=== PATIENT | male | born 1985 | race Caucasian/White ===

== ENCOUNTER 2024-07-28 08:44 | Emergency (ER) | payer OTHER, SELFPAY ==
--- NOTE | 2024-07-28 08:48 | ED_ITS ---
HPI - URI/Sore Throat General Chief Complaint: Upper Respiratory Infection Stated Complaint: cold symptoms Time Seen by Provider: 07/28/24 08:48 Source: patient Mode of arrival: ambulatory Limitations: no limitations History of Present Illness HPI Narrative: Jeacnarlos is a 39-year-old male patient presenting to the clinic today with complaints of sore throat x 10 days. He reports he had cold symptoms for approximately 2 days and those symptoms resolved however he has had sore throat this gradually get worse over the last 8 days. Denies any known fevers, chills, body aches. Does report a decrease in appetite. Related Data Allergies Allergy/AdvReac Type Severity Reaction Status Date / Time No Known Allergies Allergy Verified 07/28/24 08:55 Review of Systems Review of Systems: Pertinent positives per HPI. Patient denies any fever, chills, rash, headache, visual changes, dizziness, cough, shortness of breath, chest pain, palpitations, nausea, vomiting, diarrhea, constipation, abdominal pain, or any urinary issues. PMFSH Past Medical History Medical History Lateral epicondylitis of elbow Migraines Elevated BP without diagnosis of hypertension Hypersomnia Snoring Depression PTSD (post-traumatic stress disorder) Frequent headaches Anxiety Surgical History Surgical History History of vasectomy 2022 Family History Family History Father COPD (chronic obstructive pulmonary disease) Mother Diabetes mellitus Hypertension Grandparent Diabetes mellitus Hypertension Carcinoma of colon Social History Social History Smoking status: Never smoker Alcohol intake: current Alcohol use details: Beer- Once a week 3-6 drinks Substance use: never Comments At the time of my signature, I reviewed and agree with the nursing past medical, surgical, social, and family history. There is no relevant family history pertinent to the patient complaint. Exam Narrative: General: Well-developed, well nourished, in no apparent distress Head: Normocephalic, atraumatic Eyes: Pupils equally round and reactive to light bilaterally, EOM intact, sclera and conjunctive clear, no discharge, lids normal Ears: TMs intact and clear, ear canals clear, no drainage, grossly hearing normal. Nose: Nares patent, clear nasal discharge, no inflammation, no sinus tenderness. Mouth: Oral pharynx mildly red without lesions or masses, good dentition, MMM. Postnasal drip Neck: Supple, trachea midline, no enlargement of anterior or posterior cervical nodes, no thyroid masses or goiter palpable. Cardio: Regular rate and rhythm, s1 and s2 normal, no murmur appreciated. Resp: Clear to auscultation bilaterally, no rhonchi, rales, wheezing or rubs Course Course Emergency Course: Portions of this record may have been created with voice recognition software. Level of Care: Express Care Visit Vital Signs Vital signs: Vital Signs Temperature 36.4 C 07/28/24 08:55 Pulse Rate 91 07/28/24 08:55 Respiratory Rate 18 07/28/24 08:55 Blood Pressure 133/94 H 07/28/24 08:55 Pulse Oximetry 98 07/28/24 08:55 Oxygen Delivery Room Air 07/28/24 08:55 Temperature 36.4 C 07/28/24 08:55 Pulse Rate 91 07/28/24 08:55 Respiratory Rate 18 07/28/24 08:55 Blood Pressure 133/94 H 07/28/24 08:55 Pulse Oximetry 98 07/28/24 08:55 Oxygen Delivery Room Air 07/28/24 08:55 Vital signs reviewed MDM - URI/Sore Throat MDM Narrative Medical decision making narrative: At the time of visit patient is resting comfortably on the exam table. Patient appears to be nontoxic. Labs: Strep test was negative in the clinic today. We will send strep for culture. Plan: I suspect patient has pharyngitis/postnasal drip. Prescription for prednisone was sent to the pharmacy. Recommend using Flonase and [id number] antihistamines. Supportive measures were discussed with the patient and they voiced understanding discharge instructions and agrees to treatment plan. Return precautions reviewed Differential Diagnosis Differential diagnosis: Likely upper respiratory infection, otitis media, sinusitis, viral infection, bronchitis, influenza, pharyngitis and other (COVID) Lab Data Labs: Lab Results 07/28/24 Range/Units 09:09 POC Grp A Strep Screen Pending Discharge Plan Discharge Clinical Impression: PND (post-nasal drip) Pharyngitis Qualifiers: Pharyngitis/tonsillitis etiology: unspecified etiology Qualified Code(s): J02.9 - Acute pharyngitis, unspecified Patient Disposition: Home Condition: Stable Instructions: Antibiotic Form, Pharyngitis (ED), Postnasal Drip (DC) Additional Instructions: Strep test was negative in the clinic today. We will send strep for culture if this comes back positive we will contact you place you on antibiotics at that time. Take prescription medications only as prescribed-prednisone Increase fluids and stay well hydrated Tylenol/motrin for pain/fever Flonase and OTC antihistamines as directed Vicks vapor rub to open sinuses Sinus rinses for congestion Cepacol spray, cough drops, throat lozenges, warm tea with honey/lemon, gargle salt water to soothe throat BRAT diet for diarrhea Clear liquids x 24 hours then advance as tolerated for nausea/vomiting Go to the ED if you develop a worsening in your condition- high fever not controlled by Tylenol or Motrin, dehydration, weakness, lethargy, shortness of breath, or chest pain. Follow up with your PCP in 3-5 days if symptoms persist. Patient Language: Ethiopian Prescriptions: New prednisone 20 mg tablet 40 mg PO DAILY 5 Days Qty: 10 0RF Follow-up/Referrals: UNKNOWN,DOCTOR [Non-Staff] - Time of Disposition: 09:00 Quality NIHSS Nursing Documentation ED NIHSS nursing documentation: reviewed/agree
--- OUTSIDE RECORDS SUMMARY | 2024-07-28 08:51 | XMS_ITS | Continuity of Care Document ---
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 It does not include entries that were removed or entered in error. Problem Status Onset Date Problem Type Date of Resolution Comments Source visit for: services physical Active Condition DoD visit for: occupational health / fitness exam Active Condition DoD Migraine variants Active Condition 0232 C-[facility] Morbid obesity Active Condition Unknown Organization PTSD - Post-traumatic stress disorder Active Condition 0232C-[facility] [place] Allergies, Adverse Reactions, Alerts Combined list of allergies from Department of Defense and Veterans Affairs facilities. It does not include entries that were removed or entered in error. Substance Category Reaction Severity Reaction type Status Date Reported Comments Source No Known Allergies Drug allergy (disorder) active 12/06/2007 [facility] Immunizations Combined list of available immunizations from the Department of Defense and Veterans Affairs facilities. Immunization Series Date Given Administered By Site Reaction Lot Number CVX Code Drug Hotel Breakfast Attendant Status Comments Source influenza virus vaccine, inactivated 2021 JUVENCIO Moreiraul macario, right (delt oid) [id number] Ps[employer]ic, A [employer] Company complet ed influenza virus vaccine, inactivat ed 02/26/22 Given 0232C-N [facility] Medical [facility] [place] [facility] l tetanus, diphtheria, acellular pertu is 2021 LOUIAMS Shoul macario, left (delt oid) [id number] sanofi pasteur complet ed tetanus, diphtheri a, acellular pertussis 08/03/21 Given 0029C-N [facility] COVID Vaccine Pfizer 2021 MISBAHLLIAMS Shoul macario, right (delt oid) [id number] PFIZER complet ed COVID Vaccine Pfizer 08/03/21 Given 0029C-N [facility] influenza virus vaccine, inactivated 2020 CODYDDUPONT Shoul macario, left (delt oid) [id number] 150 Seqirus, A [employer] Company complet ed influenza virus vaccine, inactivat ed 02/23/21 [facility] influenza, injectable, quadrivalent 2020 RUTHLCLEMENTMS [id number] 158 complet ed Result Comment: Route: Unknown Manufactu rer: OT (SEQ) 0029CN [facility] COVID Vaccine Pfizer 2020 LAKESHIA GIBBS Shoul macario, right (delt oid) [id number] PFIZER complet ed COVID Vaccine Pfizer 11/13/20 Given 0029N [facility] COVID Vaccine Pfizer 2020 BROOKLYSHELLY E Shoul macario, left (delt oid) [id number] PFIZER complet ed COVID Vaccine Pfizer 10/21/20 Given 0029CN [facility] influenza, injectable, quadrivalent- pf 2019 DERREK Transcr ibed 150 complet ed Result Comment: Route: Unknown Manufactu rer: OT (TRN) 0029N [facility] influenza, injectable, quadrivalent- pf 2018 [id number] 150 Seqirus complet ed influenza , injectabl e, quadrival ent-pf 03/06/19 Given Ambulat ory Pharmac y influenza, injectable, quadrivalent- pf 2018 [id number] 150 Seqirus complet ed influenza , injectabl e, quadrival ent-pf 03/06/19 Given Ambulat ory Pharmac y Influenza, injectable, quadrivalent, preservative free 0 2018 [id number] 150 Seqirus (SEQ) complet ed Influenza , injectabl e, quadrival ent, preservat maylin free DoD Croatian Encephalitis IM 2018 [id number] 5E 134 Valneva complet ed Croatian Encephali tis IM 06/09/18 Given Ambulat ory Pharmac y typhoid vaccine, parenteral 2018 [id number] 41 sanofi pasteur complet ed typhoid vaccine, parentera l 06/09/18 Given Ambulat ory Pharmac y anthrax vaccine 2018 [id number] 24 Emer[employer] complet ed anthrax vaccine 06/09/18 Given Ambulat ory Pharmac y typhoid vaccine, parenteral 2018 [id number] 41 sanofi pasteur complet ed typhoid vaccine, parentera l 06/09/18 Given Ambulat ory Pharmac y anthrax vaccine 2018 [id number] 24 [employer] complet ed anthrax vaccine 06/09/18 Given Ambulat ory Pharmac y Croatian Encephalitis IM 2018 [id number] 5E 134 Valneva complet ed [place]ian Encephali tis IM 06/09/18 Given Ambulat ory Pharmac y anthrax vaccine 7 2018 [id number] 24 Emergent [employer] [place] (MIP) complet ed anthrax vaccine DoD typhoid vaccine, parenteral, other than acetone-kille d, dried 1 2018 [id number] 41 Sanofi Pasteur (PMC) complet ed typhoid vaccine, parentera l, other than acetone-k illed, dried DoD [place] Encephalitis vaccine for intramuscular administratio n 3 2018 [id number] 5E 134 Valneva (LINUS) complet ed [place] Encephali tis vaccine for intramusc ular administr ation DoD varicella virus vaccine 0 2017 21 () Not Given varicella virus vaccine DoD influenza, injectable, quadrivalent- pf 2017 [id number] 1A 150 Seqirus complet ed influenza , injectabl e, quadrival ent-pf 01/23/18 Given Ambulat ory Pharmac y influenza, injectable, quadrivalent- pf 2017 [id number] 1A 150 Seqirus complet ed influenza , injectabl e, quadrival ent-pf 01/23/18 Given Ambulat ory Pharmac y Influenza, injectable, quadrivalent, preservative free 0 2017 [id number] 1A 150 Seqirus (SEQ) complet ed Influenza , injectabl e, quadrival ent, preservat maylin free DoD Croatian Encephalitis IM 2016 [id number] 5e 134 Valneva complet ed Croatian Encephali tis IM 02/07/17 Given Ambulat ory Pharmac y Croatian Encephalitis IM 2016 [id number] 5E 134 Valneva complet ed [place] Encephali tis IM 02/07/17 Given Ambulat ory Pharmac y [place] Encephalitis vaccine for intramuscular administratio n 2 2016 [id number] 5E 134 Intercell [employer] (INT) complet ed [place] Encephali tis vaccine for intramusc ular administr ation DoD Croatian Encephalitis IM 2016 [id number] 5c 134 Valneva complet ed [place] Encephali tis IM 01/06/17 Given Ambulat ory Pharmac y Croatian Encephalitis IM 2016 [id number] 5C 134 Valneva complet ed [place] Encephali tis IM 01/06/17 Given Ambulat ory Pharmac y Croatian Encephalitis vaccine for intramuscular administratio n 1 2016 [id number] 5C 134 [employer] (INT) complet ed [place] Encephali tis vaccine for intramusc ular administr ation DoD influenza, injectable, quadrivalent- pf 2016 [id number] 150 GlaxoSmithKli ne complet ed influenza , injectabl e, quadrival ent-pf 12/29/16 Given Ambulat ory Pharmac y influenza, injectable, quadrivalent- pf 2016 [id number] 150 GlaxoSmithKli ne complet ed influenza , injectabl e, quadrival ent-pf 12/29/16 Given Ambulat ory Pharmac y Influenza, injectable, quadrivalent, preservative free 0 2016 [id number] 150 SmithKline (SKB) complet ed Influenza , injectabl e, quadrival ent, preservat maylin free DoD influenza, injectable, quadrivalent- pf 2016 [id number] 150 GlaxoSmithKli ne complet ed influenza , injectabl e, quadrival ent-pf 12/28/16 Given Ambulat ory Pharmac y influenza, injectable, quadrivalent- pf 2016 [id number] 150 GlaxoSmithKli ne complet ed influenza , injectabl e, quadrival ent-pf 12/28/16 Given Ambulat ory Pharmac y Influenza, injectable, quadrivalent, preservative free 0 2016 [id number] 150 SmithKline (SKB) complet ed Influenza , injectabl e, quadrival ent, preservat maylin free DoD measles and rubella virus vaccine 2016 04 complet ed measles and rubella virus vaccine 09/20/16 Given Ambulat ory Pharmac y measles and rubella virus vaccine 0 2016 04 () complet ed measles and rubella virus vaccine DoD anthrax vaccine 2016 [id number] 24 Emergent Bios[employer] complet ed anthrax vaccine 08/20/16 Given Ambulat ory Pharmac y typhoid Vi capsular polysaccharid e vac 2016 [id number] 101 [employer] [place] complet ed typhoid Vi capsular polysacch aride vac 08/20/16 Given Ambulat ory Pharmac y typhoid Vi capsular polysaccharid e vac 2016 [id number] 101 [employer] [place] complet ed typhoid Vi capsular polysacch aride vac 08/20/16 Given Ambulat ory Pharmac y anthrax vaccine 2016 [id number] 24 Emer[employer] complet ed anthrax vaccine 08/20/16 Given Ambulat ory Pharmac y anthrax vaccine 7 2016 [id number] 24 [employer] [place] (MIP) complet ed anthrax vaccine DoD typhoid Vi capsular polysaccharid e vaccine 2 2016 [id number] 101 [employer] ([facility]) complet ed typhoid Vi capsular polysacch aride vaccine DoD influenza, seasonal, injectable-pf 2015 [id number] 140 Seqirus complet ed influenza , seasonal, injectabl e-pf 01/21/16 Given Ambulat ory Pharmac y influenza, seasonal, injectable-pf 2015 [id number] 140 Seqirus complet ed influenza , seasonal, injectabl e-pf 01/21/16 Given Ambulat ory Pharmac y Influenza, seasonal, injectable, preservative free 0 2015 [id number] 140 Seqirus (SEQ) comple t ed Influenza , seasonal, injectabl e, preservat maylin free DoD anthrax vaccine 2014 [id number] 24 [employer] complet ed anthrax vaccine 03/17/15 Given Ambulat ory Pharmac y anthrax vaccine 2014 [id number] 24 [employer] complet ed anthrax vaccine 03/17/15 Given Ambulat ory Pharmac y anthrax vaccine 7 2014 [id number] 24 [employer] [place] (MIP) complet ed anthrax vaccine DoD influenza,tri valent, recombinant, inj-pf 2014 [id number] 155 CSL Behring complet ed influenza ,trivalen t, recombina nt, inj-pf 03/12/15 Given Ambulat ory Pharmac y influenza,tri valent, recombinant, inj-pf 2014 [id number] 155 CSL Behring complet ed influenza ,trivalen t, recombina nt, inj-pf 03/12/15 Given Ambulat ory Pharmac y Seasonal, trivalent, recombinant, injectable influenza vaccine, preservative free 0 2014 [id number] 155 [facility] [employer] (CS) complet ed Seasonal, trivalent , recombina nt, injectabl e influenza vaccine, preservat maylin free DoD anthrax vaccine 2013 [id number] 24 Emergent Biosolutions complet ed anthrax vaccine 03/18/14 Given Ambulat ory Pharmac y influenza, injectable, quadrivalent 2013 [id number] 158 sanofi pasteur complet ed influenza , injectabl e, quadrival ent 03/18/14 Given Ambulat ory Pharmac y typhoid Vi capsular polysaccharid e vac 2013 [id number] 101 [place] [place] complet ed typhoid Vi capsular polysacch aride vac 03/18/14 Given Ambulat ory Pharmac y vaccinia (smallpox) vaccine 2013 [id number] 75 Sanofi Pasteur Incorporated complet ed vaccinia (smallpox ) vaccine 03/18/14 Given Ambulat ory Pharmac y influenza, injectable, quadrivalent 2013 [id number] 158 sanofi pasteur complet ed influenza , injectabl e, quadrival ent 03/18/14 Given Ambulat ory Pharmac y vaccinia (smallpox) vaccine 2013 [id number] 75 Sanofi Pasteur Incorporated complet ed vaccinia (smallpox ) vaccine 03/18/14 Given Ambulat ory Pharmac y anthrax vaccine 2013 [id number] 24 [employer] complet ed anthrax vaccine 03/18/14 Given Ambulat ory Pharmac y typhoid Vi capsular polysaccharid e vac 2013 [id number] 101 [place] [place] complet ed typhoid Vi capsular polysacch aride vac 03/18/14 Given Ambulat ory Pharmac y anthrax vaccine 7 2013 [id number] 24 [employer] [place] (MIP) complet ed anthrax vaccine DoD vaccinia (smallpox) vaccine 0 2013 [id number] 75 (AARON) complet ed vaccinia (smallpox ) vaccine DoD typhoid Vi capsular polysaccharid e vaccine 2 2013 [id number] 101 [employer]og[employer] ([facility]) complet ed typhoid Vi capsular polysacch aride vaccine DoD influenza, injectable, quadrivalent, contains preservative 0 2013 [id number] 158 Sanofi Pasteur ([facility]) complet ed influenza , injectabl e, quadrival ent, contains preservat maylin DoD tetanus, diphtheria, acellular pertu is 2013 [id number] 115 GlaxoSmithKli ne complet ed tetanus, diphtheri a, acellular pertussis 11/06/13 Given Ambulat ory Pharmac y tetanus, diphtheria, acellular pertu is 2013 zzLef t Arm N3BE2 115 GlaxoSmithKli ne complet ed tetanus, diphtheri a, acellular pertussis 11/06/13 Given Ambulat ory Pharmac y tetanus toxoid, reduced diphtheria toxoid, and acellular pertu is vaccine, adsorbed 1 2013 TOMÁS KAHN [id number] 115 [employer] GmbHGurnard Perch [employer] ([facility]) complet ed tetanus toxoid, reduced diphtheri a toxoid, and acellular pertussis vaccine, adsorbed DoD influenza, seasonal, injectable 2012 141 complet ed influenza , seasonal, injectabl e 01/24/13 Given Ambulat ory Pharmac y influenza, seasonal, injectable 2012 141 complet ed influenza , seasonal, injectabl e 01/24/13 Given Ambulat ory Pharmac y Influenza, seasonal, injectable 0 2012 141 (MVX) complet ed Influenza , seasonal, injectabl e DoD influenza, seasonal, injectable 2011 141 Novartis Pharmaceutica ls complet ed influenza , seasonal, injectabl e 03/16/12 Given Ambulat ory Pharmac y influenza, seasonal, injectable 2011 141 Novartis Pharmaceutica ls complet ed influenza , seasonal, injectabl e 03/16/12 Given Ambulat ory Pharmac y Influenza, seasonal, injectable 0 2011 141 Novartis Pharmaceutica l Sorin. (NOV) complet ed Influenza , seasonal, injectabl e DoD influenza virus vaccine, live 2009 [id number] 111 Medimmune Inc comple t ed influenza virus vaccine, live 12/18/09 Given Ambulat ory Pharmac y influenza virus vaccine, live 2009 [id number] 111 MediMinistry of [employer] Inc comple t ed influenza virus vaccine, live 12/18/09 Given Ambulat ory Pharmac y influenza virus vaccine, live, attenuated, for intranasal use 0 2009 [id number] 111 [employer]. (MED) complet ed influenza virus vaccine, live, attenuate d, for intranasa l use DoD Croatian Encephalitis vaccine, FL 2009 [id number] 39 Merck & Company Inc complet ed [place] Encephali tis vaccine, FL 11/03/09 Given Ambulat ory Pharmac y Croatian Encephalitis vaccine, FL 2009 [id number] 39 Merck & Company Inc complet ed [place] Encephali tis vaccine, [place] 11/03/09 Given Ambulat ory Pharmac y Croatian Encephalitis Vaccine SC 3 2009 [id number] 39 Merck (MSD) complet ed [place] Encephali tis Vaccine [facility] Croatian Encephalitis IM 2009 UNK 134 Unknown complet ed Croatian Encephali tis IM 09/11/09 Given Ambulat ory Pharmac y meningococcal polysaccharid e (MPSV4) 2009 UNK 32 CSL Behring complet ed meningoco ccal polysacch aride (MPSV4) 09/11/09 Given Ambulat ory Pharmac y Croatian Encephalitis IM 2009 UNK 134 Unknown complet ed Croatian Encephali tis IM 09/11/09 Given Ambulat ory Pharmac y Croatian Encephalitis vaccine, FL 2009 [id number] 39 Merck & Company Inc complet ed [place]ian Encephali tis vaccine, FL 09/11/09 Given Ambulat ory Pharmac y meningococcal polysaccharid e (MPSV4) 2009 UNK 32 CSL Behring complet ed meningoco ccal polysacch aride (MPSV4) 09/11/09 Given Ambulat ory Pharmac y meningococcal polysaccharid e vaccine (MPSV4) 0 2009 UNK 32 [employer] (AVB) complet ed meningoco ccal polysacch aride vaccine (MPSV4) DoD Croatian Encephalitis Vaccine SC 2 2009 [id number] 39 Merck (MSD) complet ed [place] Encephali tis Vaccine [facility] Croatian Encephalitis vaccine for intramuscular administratio n 3 2009 UNK 134 Unknown (UNK) comple t ed [place] Encephali tis vaccine for intramusc ular administr ation DoD Croat[place] Encephalitis IM 2009 [id number] 134 Merck & Company Inc complet ed [place] Encephali tis IM 07/21/09 Given Ambulat ory Pharmac y anthrax vaccine 2009 [id number] Emergent Bios[employer] complet ed anthrax vaccine 07/21/09 Given Ambulat ory Pharmac y [place]ian Encephalitis vaccine, SC 2009 [id number] 39 Merck & Company Inc complet ed [place] Encephali tis vaccine, SC 07/21/09 Given Ambulat ory Pharmac y Croatian Encephalitis IM 2009 [id number] 134 Merck & Company Inc complet ed [place] Encephali tis IM 07/21/09 Given Ambulat ory Pharmac y anthrax vaccine 2009 [id number] 24 [employer] complet ed anthrax vaccine 07/21/09 Given Ambulat ory Pharmac y anthrax vaccine 7 2009 [id number] 24 [employer] (MIP) complet ed anthrax vaccine DoD Croatian Encephalitis Vaccine SC 1 2009 [id number] 39 Merck (MSD) complet ed [place] Encephali tis Vaccine SC DoD Croat[place] Encephalitis vaccine for intramuscular administratio n 1 2009 [id number] 134 Merck (MSD) complet ed [place] Encephali tis vaccine for intramusc ular administr ation DoD Novel influenza-H1N 1-09, injectable 2008 UNK 127 complet ed Novel influenza -M9T1-44, injectabl e 03/14/09 Given Ambulat ory Pharmac y influenza virus vaccine, live 2008 UNK 111 Unknown complet ed influenza virus vaccine, live 03/14/09 Given Ambulat ory Pharmac y typhoid Vi capsular polysaccharid e vac 2008 [id number] sanofi pasteur complet ed typhoid Vi capsular polysacch aride vac 03/14/09 Given Ambulat ory Pharmac y Novel influenza-H1N 1-09, injectable 2008 UNK 127 complet ed Novel influenza -S3V7-05, injectabl e 03/14/09 Given Ambulat ory Pharmac y influenza virus vaccine, live 2008 UNK 111 Unknown complet ed influenza virus vaccine, live 03/14/09 Given Ambulat ory Pharmac y typhoid Vi capsular polysaccharid e vac 2008 [id number] sanofi pasteur complet ed typhoid Vi capsular polysacch aride vac 03/14/09 Given Ambulat ory Pharmac y typhoid Vi capsular polysaccharid e vaccine 1 2008 [id number] 101 Sanofi Pasteur (PMC) complet ed typhoid Vi capsular polysacch aride vaccine DoD influenza virus vaccine, live, attenuated, for intranasal use 0 2008 UNK 111 Unknown (UNK) comple t ed influenza virus vaccine, live, attenuate d, for intranasa l use DoD Novel influenza-H1N 1-09, injectable 0 2008 UNK 127 (AG) complet ed Novel influenza -G8Y4-96, injectabl e DoD anthrax vaccine 2008 UNK 24 [employer] complet ed anthrax vaccine 05/28/08 Given Ambulat ory Pharmac y anthrax vaccine 2008 UNK 24 Emer[employer] complet ed anthrax vaccine 05/28/08 Given Ambulat ory Pharmac y anthrax vaccine 7 2008 UNK 24 [employer] (MIP) complet ed anthrax vaccine DoD anthrax vaccine 2008 UNK 24 Emer[employer] complet ed anthrax vaccine 04/24/08 Given Ambulat ory Pharmac y anthrax vaccine 2008 UNK 24 Emer[employer] complet ed anthrax vaccine 04/24/08 Given Ambulat ory Pharmac y anthrax vaccine 7 2008 UNK 24 [employer] (MIP) complet ed anthrax vaccine DoD influenza virus vaccine,split 2007 UNK 15 Unknown complet ed influenza virus vaccine,s plit 03/14/08 Given Ambulat ory Pharmac y influenza virus vaccine,split 2007 UNK 15 Unknown complet ed influenza virus vaccine,s plit 03/14/08 Given Ambulat ory Pharmac y influenza virus vaccine, split virus (incl. purified surface antigen)-reti red CODE 0 2007 UNK 15 Unknown (UNK) comple t ed influenza virus vaccine, split virus (incl. purified surface antigen)- retired CODE DoD anthrax vaccine 2007 UNK 24 [employer] complet ed anthrax vaccine 05/29/07 Given Ambulat ory Pharmac y anthrax vaccine 2007 UNK 24 Emer[employer] complet ed anthrax vaccine 05/29/07 Given Ambulat ory Pharmac y anthrax vaccine 6 2007 UNK 24 [employer] (MIP) complet ed anthrax vaccine DoD influenza virus vaccine,split 2006 UNK 15 [employer] comple t ed influenza virus vaccine,s plit 02/19/07 Given Ambulat ory Pharmac y influenza virus vaccine,split 2006 UNK 15 [employer] [facility] comple t ed influenza virus vaccine,s plit 02/19/07 Given Ambulat ory Pharmac y influenza virus vaccine, split virus (incl. purified surface antigen)-reti red CODE 0 2006 UNK 15 [employer] (MED) complet ed influenza virus vaccine, split virus (incl. purified surface antigen)- retired CODE DoD typhoid Vi capsular polysaccharid e vac 2006 UNK 101 Unknown complet ed typhoid Vi capsular polysacch aride vac 01/12/07 Given Ambulat ory Pharmac y typhoid Vi capsular polysaccharid e vac 2006 UNK 101 Unknown complet ed typhoid Vi capsular polysacch aride vac 01/12/07 Given Ambulat ory Pharmac y typhoid Vi capsular polysaccharid e vaccine 1 2006 UNK 101 Unknown (UNK) comple t ed typhoid Vi capsular polysacch aride vaccine DoD typhoid vaccine, parenteral 2006 UNK 41 [facility] complet ed typhoid vaccine, parentera l 01/11/07 Given Ambulat ory Pharmac y typhoid vaccine, parenteral 2006 UNK 41 [facility] complet ed typhoid vaccine, parentera l 01/11/07 Given Ambulat ory Pharmac y typhoid vaccine, parenteral, other than acetone-kille d, dried 2 2006 UNK 41 [facility] typhoid vaccine, parentera l, other than acetone-k illed, dried DoD anthrax vaccine 2006 UNK 24 Unknown complet ed anthrax vaccine 11/02/06 Given Ambulat ory Pharmac y anthrax vaccine 2006 UNK 24 Unknown complet ed anthrax vaccine 11/02/06 Given Ambulat ory Pharmac y anthrax vaccine 5 2006 UNK 24 Unknown (UNK) comple t ed anthrax vaccine DoD influenza virus vaccine,split 2005 [id number] 15 [employer] comple t ed influenza virus vaccine,s plit 03/22/06 Given Ambulat ory Pharmac y influenza virus vaccine,split 2005 [id number] 15 Medimmune Inc comple t ed influenza virus vaccine,s plit 03/22/06 Given Ambulat ory Pharmac y influenza virus vaccine, split virus (incl. purified surface antigen)-reti red CODE 0 2005 [id number] 15 MedImmune, Inc. (MED) complet ed influenza virus vaccine, split virus (incl. purified surface antigen)- retired CODE DoD influenza virus vaccine,split 2004 [id number] 15 Unknown complet ed influenza virus vaccine,s plit 03/11/05 Given Ambulat ory Pharmac y influenza virus vaccine,split 2004 [id number] 15 Unknown complet ed influenza virus vaccine,s plit 03/11/05 Given Ambulat ory Pharmac y influenza virus vaccine, split virus (incl. purified surface antigen)-reti red CODE 0 2004 [id number] 15 Other (OTH) complet ed influenza virus vaccine, split virus (incl. purified surface antigen)- retired CODE DoD influenza virus vaccine,split 2003 [id number] 15 Unknown complet ed influenza virus vaccine,s plit 02/03/04 Given Ambulat ory Pharmac y influenza virus vaccine,split 2003 [id number] 15 Unknown complet ed influenza virus vaccine,s plit 02/03/04 Given Ambulat ory Pharmac y influenza virus vaccine, split virus (incl. purified surface antigen)-reti red CODE 0 2003 [id number] 15 Other (OTH) complet ed influenza virus vaccine, split virus (incl. purified surface antigen)- retired CODE DoD vaccinia (smallpox) vaccine 2003 [id number] [employer] complet ed vaccinia (smallpox ) vaccine 11/15/03 Given Ambulat ory Pharmac y vaccinia (smallpox) vaccine 2003 [id number] 75 [employer] complet ed vaccinia (smallpox ) vaccine 11/15/03 Given Ambulat ory Pharmac y vaccinia (smallpox) vaccine 1 2003 [id number] 75 [facility] complet ed vaccinia (smallpox ) vaccine DoD anthrax vaccine 2003 UNK 24 Unknown complet ed anthrax vaccine 10/19/03 Given Ambulat ory Pharmac y anthrax vaccine 2003 UNK 24 Unknown complet ed anthrax vaccine 10/19/03 Given Ambulat ory Pharmac y anthrax vaccine 4 2003 UNK 24 Unknown (UNK) comple t ed anthrax vaccine DoD anthrax vaccine 2003 [id number] 24 Unknown complet ed anthrax vaccine 09/06/03 Given Ambulat ory Pharmac y anthrax vaccine 2003 [id number] 24 Unknown complet ed anthrax vaccine 09/06/03 Given Ambulat ory Pharmac y anthrax vaccine 3 2003 [id number] 24 Other (OTH) complet ed anthrax vaccine DoD anthrax vaccine 2003 [id number] 24 Unknown complet ed anthrax vaccine 08/22/03 Given Ambulat ory Pharmac y anthrax vaccine 2003 [id number] 24 Unknown complet ed anthrax vaccine 08/22/03 Given Ambulat ory Pharmac y anthrax vaccine 2 2003 [id number] 24 Other (OTH) complet ed anthrax vaccine DoD varicella virus vaccine 1 2003 21 () Not Given varicella virus vaccine DoD hepatitis A-hepatitis B vaccine 2003 UNKNOWN 104 Unknown complet ed hepatitis A-hepatit is B vaccine 08/08/03 Given Ambulat ory Pharmac y typhoid vaccine, parenteral 2003 UNKNOWN 41 Unknown complet ed typhoid vaccine, parentera l 08/08/03 Given Ambulat ory Pharmac y anthrax vaccine 2003 [id number] 24 Unknown complet ed anthrax vaccine 08/08/03 Given Ambulat ory Pharmac y typhoid vaccine, parenteral 2003 UNKNOWN 41 Unknown complet ed typhoid vaccine, parentera l 08/08/03 Given Ambulat ory Pharmac y hepatitis A-hepatitis B vaccine 2003 UNKNOWN 104 Unknown complet ed hepatitis A-hepatit is B vaccine 08/08/03 Given Ambulat ory Pharmac y anthrax vaccine 2003 [id number] Unknown complet ed anthrax vaccine 08/08/03 Given Ambulat ory Pharmac y anthrax vaccine 1 2003 [id number] Other (OTH) complet ed anthrax vaccine DoD typhoid vaccine, parenteral, other than acetone-kille d, dried 1 2003 UNKNOWN 41 Unknown (UNK) comple t ed typhoid vaccine, parentera l, other than acetone-k illed, dried DoD hepatitis A and hepatitis B vaccine 3 2003 UNKNOWN 104 Other (OTH) complet ed hepatitis A and hepatitis B vaccine DoD hepatitis A-hepatitis B vaccine 2002 [id number] B6 104 GlaxoSmithKli ne complet ed hepatitis A-hepatit is B vaccine 11/09/02 Given Ambulat ory Pharmac y poliovirus vaccine, inactivated 2002 [id number] B6 10 GlaxoSmithKli ne complet ed polioviru s vaccine, inactivat ed 11/09/02 Given Ambulat ory Pharmac y tetanus-dipht h toxoids (Td) adult/adol 2002 [id number] 09 sanofi pasteur complet ed tetanus-d iphth toxoids (Td) adult/ado l 11/09/02 Given Ambulat ory Pharmac y diphtheria/te tanus toxoids/pertu is 2002 [id number] 01 Unknown complet ed diphtheri a/tetanus toxoids/p ertussis 11/09/02 Given Ambulat ory Pharmac y yellow fever vaccine 2002 [id number] 37 Unknown complet ed yellow fever vaccine 11/09/02 Given Ambulat ory Pharmac y measles/mumps /rubella virus vaccine 2002 [id number] 03 Unknown complet ed measles/m umps/rube lla virus vaccine 11/09/02 Given Ambulat ory Pharmac y hepatitis A-hepatitis B vaccine 2002 [id number] B6 104 GlaxoSmithKli ne complet ed hepatitis A-hepatit is B vaccine 11/09/02 Given Ambulat ory Pharmac y yellow fever vaccine 2002 [id number] 37 Unknown complet ed yellow fever vaccine 11/09/02 Given Ambulat ory Pharmac y tetanus-dipht h toxoids (Td) adult/adol 2002 [id number] 09 sanofi pasteur complet ed tetanus-d iphth toxoids (Td) adult/ado l 11/09/02 Given Ambulat ory Pharmac y diphtheria/te tanus toxoids/pertu is 2002 [id number] 01 Unknown complet ed diphtheri a/tetanus toxoids/p ertussis 11/09/02 Given Ambulat ory Pharmac y measles/mumps /rubella virus vaccine 2002 [id number] 03 Unknown complet ed measles/m umps/rube lla virus vaccine 11/09/02 Given Ambulat ory Pharmac y poliovirus vaccine, inactivated 2002 [id number] B6 10 GlaxoSmithKli ne complet ed polioviru s vaccine, inactivat ed 11/09/02 Given Ambulat ory Pharmac y diphtheria, tetanus toxoids and pertu is vaccine 1 2002 [id number] 01 Other (OTH) complet ed diphtheri a, tetanus toxoids and pertussis vaccine DoD measles, mumps and rubella virus vaccine 1 2002 [id number] 03 Other (OTH) complet ed measles, mumps and rubella virus vaccine DoD tetanus and diphtheria toxoids, adsorbed, preservative free, for adult use (2 Lf of tetanus toxoid and 2 Lf of diphtheria toxoid) 1 2002 [id number] 09 Sanofi Pasteur ([facility]) complet ed tetanus and diphtheri a toxoids, adsorbed, preservat maylin free, for adult use (2 Lf of tetanus toxoid and 2 Lf of diphtheri a toxoid) DoD poliovirus vaccine, inactivated 2 2002 [id number] B6 10 Smithine (SK) complet ed polioviru s vaccine, inactivat ed DoD yellow fever vaccine 1 2002 [id number] 37 Other (OTH) complet ed yellow fever vaccine DoD hepatitis A and hepatitis B vaccine 2 2002 [id number] B6 104 SmithKline (SKB) complet ed hepatitis A and hepatitis B vaccine DoD hepatitis A-hepatitis B vaccine 2002 [id number] 6 104 GlaxoSmithKli ne complet ed hepatitis A-hepatit is B vaccine 10/09/02 Given Ambulat ory Pharmac y poliovirus vaccine, inactivated 2002 [id number] 6 10 GlaxoSmithKli ne complet ed polioviru s vaccine, inactivat ed 10/09/02 Given Ambulat ory Pharmac y measles/mumps /rubella virus vaccine 2002 [id number] 03 Unknown complet ed measles/m umps/rube lla virus vaccine 10/09/02 Given Ambulat ory Pharmac y meningococcal polysaccharid e (MPSV4) 2002 [id number] 32 Unknown complet ed meningoco ccal polysacch aride (MPSV4) 10/09/02 Given Ambulat ory Pharmac y hepatitis A-hepatitis B vaccine 2002 [id number] 6 104 GlaxoSmithKli ne complet ed hepatitis A-hepatit is B vaccine 10/09/02 Given Ambulat ory Pharmac y meningococcal polysaccharid e (MPSV4) 2002 [id number] 32 Unknown complet ed meningoco ccal polysacch aride (MPSV4) 10/09/02 Given Ambulat ory Pharmac y poliovirus vaccine, inactivated 2002 [id number] 6 10 GlaxoSmithKli ne complet ed polioviru s vaccine, inactivat ed 10/09/02 Given Ambulat ory Pharmac y measles/mumps /rubella virus vaccine 2002 [id number] 03 Unknown complet ed measles/m umps/rube lla virus vaccine 10/09/02 Given Ambulat ory Pharmac y measles, mumps and rubella virus vaccine 1 2002 [id number] 03 Other (OTH) complet ed measles, mumps and rubella virus vaccine DoD poliovirus vaccine, inactivated 1 2002 [id number] 6 10 SmithKline (SKB) complet ed polioviru s vaccine, inactivat ed DoD meningococcal polysaccharid e vaccine (MPSV4) 1 2002 [id number] 32 Other (OTH) complet ed meningoco ccal polysacch aride vaccine (MPSV4) DoD hepatitis A and hepatitis B vaccine 1 2002 [id number] 6 104 SmithKline (SKB) complet ed hepatitis A and hepatitis B vaccine DoD Results Combined list of recent chemistry, hematology and other laboratory results from Department of Defense and Veterans Affairs, ranging from 15 months to all on record, depending upon the facility. Order Name Results Value Reference Range Date Interpretation Specimen Comments Source Reproduct maylin Studies Motile Sperm? Absent (06/15/22 10:35 AM) 06/15 N [facility]29A[facility] Reproduct maylin Studies Non-Motile Sperm? Absent (06/15/22 10:35 AM) 06/15 N 0029A-[facility] Reproduct maylin Studies Semen Volume 1.5 mL 1.5 - 6.8 06/15 N 0029A-[facility] Immunolog y/Serolog y Hep C Ab Non-Reac tive 1 (05/18/22 9:42 AM) 05/18 N Interpretiv e Data: Reactive results for the Hepatitis C antibody should be confirmed with an HCV RNA PRIMO QUAL (TEST CODE: [id number]) to determine if the infection is active or resolved. Use of biotin supplements greater than 10 mg/day has been shown to affect the accuracy of this test. Providers should encourage patients to cease all biotin supplements for a minimum of 72 hours before phlebotomy to avoid interferenc e. 0029A-[facility] AP Specimens AP Surgical Pathology Patient: Jeancarlos Krishnan Specimen #: [id number] Patholog ist: LCDR [facility] Access[facility]: 3 [facility] DEPARTME NT OF PATHOLOG Y [address] [facility] 1, [address] [place] [address] Surgical Patholog y Report Patient: Jeancarlos Krishnan Specimen #: [id number] [facility] ID:: [id number] Encounte r #: [id number] Taken: 3 12:09 /Age: 1 4 (Age: 36) Received : 3 17:05 Physicia n(s): DUC NG Reported : 3 Specimen (s) Received Taken Rec A: RT VAS PORTION 3 12:09 3 17:05 B: LT VAS PORTION 3 12:09 3 17:05 Final Diagnosi s A-B. VAS DEFERENS , RIGHT AND LEFT RESPECTI VELY, VASECTOM Y: - COMPLETE CROSS SECTIONS OF VAS DEFERENS IDENTIFI ED. Elect ronicall y Signed ana/04/15 LCDR Shankar SIVAKUMAR Clinical Diagnosi s and History 36 Y/O M W/ DESIRED INFERTIL ITY Pre-Oper ative Diagnosi s 36 Y/O M W/ DESIRED INFERTIL ITY Post-Ope rative Diagnosi s 36 Y/O M W/ DESIRED INFERTIL ITY Gross Descript ion A. The specimen is received in 10% formalin labeled with the patient' s name Jeancarlos Burr designat ed right vas, and consists of a single cylindri kendall piece of grayish- fischer soft tissue 0.5 cm in length with a diameter up to 0.2 cm. TE x 1. B. The specimen is received in 10% formalin labeled with the patient' s name Jeancarlos Burr designat ed left vas, and consists of a single cylindri kendall piece of grayish- fischer soft tissue 0.5 cm in length with a diameter up to 0.2 cm. TE x 1. ANA CPT Codes: A; 90343 B; 28119 04/[address] [place] [address] Infectiou s Disease Source of Test.LC Gen Force Test (05/20/21 12:57 PM) 05/[address] [place] [address] [facility] HIV-1/2 AG/AB 4G CDD LC NEGATIVE 05/20 Result Comment: Performed At: 1 [facility] [address] [facility] [address] [place] [address] MIGDALIA ARIANA PHD Ph:[phone] [address] [place] [address] Vital Signs Combined list of inpatient and outpatient Vital Signs from Department of Defense and Veterans Affairs, ranging from 12 months to all on record, depending upon the facility. Vital Sign Value Date Comments Source Temperature Tympanic 36.0 Vicky 04/13/2022 16:09:[address] [place] [address] Systolic Blood Pressure 127 mm[Hg] 04/13/19 23 16:09:[address] [place] [address] Diastolic Blood Pressure 89 mm[Hg] 023 16:09:[address] [place] [address] Peripheral Pulse Rate 80 bpm 04/13/2022 16:09:[address] [place] [address] Mean Arterial Pressure, Calc 102 mm[Hg] 04/13/2022 16:09:[address] [place] [address] Systolic Blood Pressure 126 mm[Hg] 06/09/19 23 16:23:00 [facility] Diastolic Blood Pressure 90 mm[Hg] 023 16:23:00 [facility] Peripheral Pulse Rate 83 bpm 06/08/2022 16:23:[facility] Mean Arterial Pressure, Calc 102 mm[Hg] 06/08/2022 16:23:00 [facility] Respiratory Rate 17 br/min 06/08/2022 16:23:00 [facility] Temperature Oral 36.8 Vicky 06/08/2022 [facility] Blood Pressure Manual Automatic 06/08/2022 16:23:00 [facility] BP Site Left arm 06/08/2022 16:23:00 [facility] Systolic Blood Pressure 138 mm[Hg] 03/03/20 21 16:00:00 [facility] Diastolic Blood Pressure 91 mm[Hg] 021 16:00:[facility] Mean Arterial Pressure, Calc 107 mm[Hg] 03/03/2021 16:00:[facility] BP Site Left arm 03/03/2021 16:00:00 [facility] Temperature Oral 36.8 Vicky 03/03/2021 16:00:00 [facility] Blood Pressure Manual Automatic 03/03/2021 16:00:00 [facility] Peripheral Pulse Rate 96 bpm 03/03/2021 16:00:00 [facility] Systolic Blood Pressure 129 mm[Hg] 05/18/19 17:24:00 [facility] Diastolic Blood Pressure 88 mm[Hg] 023 17:24:00 [facility] Mean Arterial Pressure, Calc 102 mm[Hg] 05/18/2022 17:24:00 [facility] Peripheral Pulse Rate 89 bpm 05/18/2022 17:24:00 [facility] Respiratory Rate 16 br/min 05/18/2022 17:24:00 [facility] Blood Pressure Manual Automatic 05/18/2022 17:24:00 [facility] Temperature Oral 37 Vicky 05/18/2022 17:24:00 [facility] BP Site Right arm 05/18/2022 17:24:00 [facility] Systolic Blood Pressure 136 mm[Hg] 02/26/20 16:47:00 [facility] Diastolic Blood Pressure 104 mm[Hg] 021 16:47:00 [facility] Mean Arterial Pressure, Calc 115 mm[Hg] 02/25/2021 16:47:00 [facility] Peripheral Pulse Rate 76 bpm 02/25/2021 16:47:00 [facility] Temperature Oral 36.8 Vicky 02/25/2021 16:47:00 [facility] BP Site Left arm 02/25/2021 16:47:00 [facility] Blood Pressure Manual Automatic 02/25/2021 16:47:00 [facility] Blood Pressure Manual Automatic 06/22/2022 14:50:00 [facility] BP Site Right arm 06/22/2022 14:50:00 [facility] Systolic Blood Pressure 122 mm[Hg] 06/23/19 14:50:00 [facility] Diastolic Blood Pressure 85 mm[Hg] 023 14:50:00 [facility] Mean Arterial Pressure, Calc 97 mm[Hg] 06/22/2022 14:50:00 [facility] Peripheral Pulse Rate 92 bpm 06/22/2022 14:50:00 [facility] Respiratory Rate 16 br/min 06/22/2022 14:50:00 [facility] Temperature Oral 37 Vicky 06/22/2022 14:50:00 [facility] Systolic Blood Pressure 130 mm[Hg] 11/19/19 17:36:00 [facility] Diastolic Blood Pressure 94 mm[Hg] 022 17:36:00 [facility] Blood Pressure Manual Automatic 11/18/2021 17:36:00 [facility] Temperature Oral 36.9 Vicky 11/18/2021 17:36:00 [facility] BP Site Left arm 11/18/2021 17:36:00 [facility] Peripheral Pulse Rate 79 bpm 11/18/2021 17:36:00 [facility] Respiratory Rate 18 br/min 11/18/2021 17:36:00 [facility] Mean Arterial Pressure, Calc 106 mm[Hg] 11/18/2021 17:36:00 [facility] Respiratory Rate 18 br/min 12/15/2021 20:30:00 [facility] Blood Pressure Manual Automatic 12/15/2021 20:30:00 [facility] BP Site Left arm 12/15/2021 20:30:00 [facility] Temperature Oral 36.9 Vicky 12/15/2021 20:30:00 [facility] Peripheral Pulse Rate 72 bpm 12/15/2021 20:30:00 [facility] Mean Arterial Pressure, Calc 109 mm[Hg] 12/15/2021 20:30:00 [facility] Systolic Blood Pressure 136 mm[Hg] 12/16/19 20:30:00 [facility] Diastolic Blood Pressure 95 mm[Hg] 022 20:30:00 [facility] Encounters Combined list of: 1) Encounters from Department of Veterans Affairs facilities going backup to the last 18 months, not all VA inpatient encounters are included; 2) Encounters from the Department of Defense facilities going backup to 280 months. Location Location Details Encounter Type Encounter Number Reason For Visit Attending Provider ADM Date DC Date Status Disposition Source [facility]) OUTPATIENT [id number] PT1 ALANA TRUJILLO ISO, ROBERT E 10/03 Released w/o Limitations [facility]) [facility]) OUTPATIENT [id number] PT2 ALANA SWANSON CHRISTINE M 10/11 Released w/o Limitations [facility]) [facility]) OUTPATIENT [id number] MANSI WINSTON ISO 01/23 Released w/o Limitations [facility]) [facility]) OUTPATIENT [id number] PT2 KIKI PATRICE ELLSWORTH Vikki 01/23 Released w/o Limitations [facility]) [facility]) OUTPATIENT [id number] RECRUIT VEL SPEARS 03/03 Released w/o Limitations [facility], [facility] ([facility] Flight Medicin e) [facility] OUTPATIENT [id number] Notes Entered by: TOMÁS KAHN 06 Nov 2013 1132 ------- ------- ------- ------- -- TOMÁS HEAD 11/06 Released w/o Limitations [facility]( Immuniz ation [facility] 237) [facility](Op erational Medicine [place] [address]) OUTPATIENT [id number] RE-ENLSHANA JONES 11/06 Released w/o Limitations [facility]( Operati onal Medicin e [facility] 237) [facility](Op erational Medicine [place] [address]) OUTPATIENT [id number] BRIT Benavides 11/13 Released w/o Limitations [facility]( Operati onal Medicin e [facility] 237) [facility](Oc cupationa l Health [place] [address]) OUTPATIENT [id number] Notes Entered by: PATRICK KELLY 13 Nov 2013 0939 ------- ------- ------- ------- -- occupat ional risk assessm ent/MVO ZULEMA KELLY 11/13 Released w/o Limitations [facility]( Occupat ional Health Clinic [facility] 237) [facility](Im munizatio n [facility] 237) OUTPATIENT [id number] Notes Entered by: VEL MUSTAFA 13 Nov 2013 0954 ------- ------- ------- ------- -- NS ADM VEL MUSTAFA 11/13 Released w/o Limitations [facility]( Immuniz [facility] 237) [facility]( aring Conservat ion Clinic) OUTPATIENT [id number] Notes Entered by: BALWINDER STUART 13 Nov 2013 1008 ------- ------- ------- ------- -- annual audiogr am ear plugs BALWINDER STUART 11/13 Released w/o Limitations [facility]( [facility] [place] MAG 24 Physical Exams) OUTPATIENT [id number] Notes Entered by: THERESA HARLEY 09 Apr 2014 1329 ------- ------- ------- ------- -- COLD SORE ([facility]-46 3) YNES SWAN 04/09 [place]ased w/o Limitations [place] MAG 24 Physica l Exams) [facility]( Hearing Conservat [place] OUTPATIENT [id number] Notes Entered by: VITALIY TOM 13 Nov 2014 1206 ------- ------- ------- ------- -- AD 503 VITALIY TOM 11/13 Released w/o Limitations [facility] Conserv [place] [facility]PAT[place] [id number] Notes Entered by: ALAINA SR 26 Nov 2015 1331 ------- ------- ------- ------- -- 503 ALAINA ORTEZ 11/25 [place]ased w/o Limitations [facility] [facility] OUTPAT[place] [id number] Notes Entered by: YOVANI MASSEY 27 Nov 2015 0812 ------- ------- ------- ------- -- 503 JAMES LIBIA MASSEY VIKRAM 11/26 Released w/o Limitations [place] Conserv [place] MAG 24 Physical Exams[place] OUTPATIENT [id number] Notes Entered by: SEBASTIÁN WILSON 21 Jun 2016 0900 ------- ------- ------- ------- -- MID BACK PAIN X 1 DAY JANET MOURA 06/21 Released with Work/Duty Limitations [place]ME[place] MAG 24 Physica l Exams) [facility](Yum a FLAS Sick Call) OUTPATIENT [id number] Notes Entered by: YASH MONTES DE OCA 25 Jun 2016 1352 ------- ------- ------- ------- -- WTI / SickANNIE Reese 06/25 Released w/o Limitations [facility](Y reese FLAS Militar y Sick Call) [facility] HC [facility]) OUTPATIENT [id number] Notes Entered by: MARK OZUNA V 25 Jan 2018 0828 ------- ------- ------- ------- -- annual CLARICE HARRISON V 01/25 Released w/o Limitations [facility] ) [facility] Tm 2) TELE CONSULT [id number] Notes Entered by: DUC HANSEN 08 May 2018 1352 ------- ------- ------- ------- -- VEL Mehta 05/08 [facility] Tm 2) [place] c[place]ation [place] Medicine) OUTPATIENT [id number] 8 196,,,, ,DOC WHIT FUENTES 11/20 [place]/o Limitations [place] (Occup[place]ional Medicin [place]) [place] ccupation al Medicine) OUTPATIENT [id number] 3 196,,,, ,VG JOSE HENRIQUEZ 11/22 [place]ased w/o Limitations [place] (Occupa [place]ional Medicin e) [place] [facility](H earing Conservat ion [place]) OUTPATIENT [id number] 0 503 YOBANI NAVARRO 01/10 Released w/o Limitations [facility] (Hearin g Conserv ation [place] ) [facility] Tm 2) TELE CONSULT [id number] Notes Entered by: DUC HANSEN 28 Jun 2019 1001 ------- ------- ------- ------- -- EPHA JAMAL NYE 06/27 [facility] Tm 2) Procedures Combined list of: 1) Procedures from Department of Veterans Affairs facilities going back up to thelast 18 months, not all VA non-surgical procedures are included; 2) All procedures from the Department of Defense facilities. Procedure Procedure Type Code Date Perfomer Comments [facility] e No data is provided for this section because a [facility] internal system error occurred when retrieving data. A future request for this document may succe fully include data for this section if the system i ue has been resolved. [facility] No data available for this section Ambulatory P harmacy Social History Combined list of available smoking, tobacco, and other social history from Department of Defense and Veterans Affairs facilities. Social History Type Response Date Comment Sour e Sex Representation Male (finding) 03/24/2020 Un known Organization This section is an empty social history section. DoD Tobacco Exposure to Secondhand Smoke: No. Never-cigarette user Cigarette use:. Never-other tobacco user (not cigarettes) Other Tobacco use:. Ambulatory Pharmacy Sexual Orientation Ambula tory Pharmacy Gender identity Ambulator y Pharmacy Assessment and Plan Combined list of future care activities from Department of Defense and Veterans Affairs facilities (e.g., assessment and plan notes, appointments, orders, and referrals). Additional future care activities may be listed in the Plan of Care section. Result Assessment and Plan Date Source Assessment and Plan Extracted from:Title : Office Clinic Note Author: MARCIA MIN IDC Date: 06/22/22 1. R epeated prescription 37 y/o male here for medication refills prior to fdc from [facility], already completed his fdc physical, medications refilled today, recommended close f/u with VA or PCM upon his relocation to a new area to establish care and for any additional medication refills. Pt instructed to return to clinic or report to the ER if his symptoms worsen or if new concerning symptoms develop, all questions were answered, pt verbalized understanding of all topics discussed and agreed with plan. Orders: propranolol(propranolol 40 mg oral tablet), 1 tab(s), Oral, BID, # 180 tab(s), 0 total refill(s), Maintenance, 1 tab(s) Oral BID, Pharmacy: [facility] [Not filled] SUMAtriptan(SUMAtriptan 50 mg oral tablet), See Instructions, Take 1 tablet by mouth at onset of migraine headache. May repeat dose after 2 hours if needed. Max of 100mg within 24 hours, # 18 tab(s), 1 total refill(s), Maintenance, please dispense all refills, Take 1 tablet by mouth at onset of... Extracted from:Title: [facility] PE Author: FRAN WATKINS Date: 06/08/22 1. 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 Will need 90 day refill of migraine meds f/u sooner if needed Pt agreeable to tx plan 280/280 copies made for med record Signed: Fran Watkins LT/MSC/[employer] Physician Life Skills Instructor THELMA Hernandez Ordered: SUMAtriptan(Imitrex 50 mg oral tablet), See Instructions, Take 1 tablet by mouth at onset of migraine headache. May repeat dose after 2 hours if needed. Max of 100mg within 24 hours, # 9 tab(s), 0 total refill(s), Maintenance, Take 1 tablet by mouth at onset of migraine headache. May repeat... propranolol(propranolol 40 mg oral tablet), 1 tab(s), Oral, BID, # 60 tab(s), 0 total refill(s), Maintenance, 1 tab(s) Oral BID, Pharmacy: [facility] [Not filled] 2. M igraine variants Ordered: SUMAtriptan(Imitrex 50 mg oral tablet), See Instructions, Take 1 tablet by mouth at onset of migraine headache. May repeat dose after 2 hours if needed. Max of 100mg within 24 hours, # 9 tab(s), 0 total refill(s), Maintenance, Take 1 tablet by mouth at onset of migraine headache. May repeat... propranolol(propranolol 40 mg oral tablet), 1 tab(s), Oral, BID, # 60 tab(s), 0 total refill(s), Maintenance, 1 tab(s) Oral BID, Pharmacy: [facility] [Not filled] 3. P TSD - Post-traumatic stress disorder Ordered: SUMAtriptan(Imitrex 50 mg oral tablet), See Instructions, Take 1 tablet by mouth at onset of migraine headache. May repeat dose after 2 hours if needed. Max of 100mg within 24 hours, # 9 tab(s), 0 total refill(s), Maintenance, Take 1 tablet by mouth at onset of migraine headache. May repeat... propranolol(propranolol 40 mg oral tablet), 1 tab(s), Oral, BID, # 60 tab(s), 0 total refill(s), Maintenance, 1 tab(s) Oral BID, Pharmacy: [facility] [Not filled] Extracted from:Title: Office Clinic Note Author: ANGELICA MICHELE Date: 06/01/22 Patient has completed the requirements for annual Periodic Health Assessment per SECHATTIEVINST 6120.3 and DODINST 6025.19. RS database profile was updated to reflect member's current IMR status.?FULLY MEDICALLY READY No Medical concerns today No Suicidal or homicidal thoughts Pt denies the use of drug, gambling, and alcohol abuse 1. Since your last Tuberculosis Exposure Risk Assessment, were you exposed to anyone known to have or suspected of having active tuberculosis (i.e., individuals with persistent cough, weight loss, night sweats, and/or fever)? N O 2. Since your last Tuberculosis Exposure Risk Assessment or Post-Deployment Health Assessment (DD Form 3596), did you have direct and prolonged contact with any individuals of the following groups: refugees or displaced persons; patients hospitalized with tuberculosis, prisoners, or homeless intermediate population? NO 3a. Have you been to any countries where you have traveled or deployed to since your last Tuberculosis Exposure Risk Assessment? NO If any of the following countries are listed, answer question 3c: [place], [place], [place], [place], [place], [place], [place], [place], [place], [place], [place], [place], [place], [place], [place], [place], [place], [place], [place], [place], [place]. 3b. Have you recently traveled to [facility] for any reason other than as part of a deployment requiring completion of a Post Deployment Health Assessment (PDHA)? N O 3c.During this travel, did you have prolonged direct contact with the local population? Prolonged direct contact is generally understood as having been within six feet of a person with a bad continuous cough for at least 8 consecutive hours on a single day, or for a total of at least 15 hours per week of a multi-week stay. NO 4a. Have you recently had a chronic cough lasting more than 2 weeks? NO 4b. If you marked YES to chronic cough, did you have any of the following symptoms at the same time? Fever, cough up blood, unexplained weight loss, or night sweats. N O Addendum by DAVID INGRAM on June 01, 2022 09:35:02 PST HM1(FMF/CAC/EXW/SW) David Ingram Jr Independent Duty Commercial Credit Reviewer [facility] Det. THELMA Hernandez Extracted from:Title: Office Clinic Note Author: THONY MILLER MD Date: 05/18/22 1. G aminata-esophageal reflux disease I will start him on some Protonix for the next few weeks just to come to help since he is having heartburn we did discuss dietary changes s o that he can avoid reflux as well. Ordered: pantoprazole(pantoprazole 20 mg oral delayed release tablet), 1 tab(s), Oral, Daily, # 30 tab(s), 2 total refill(s), Maintenance, 1 tab(s) Oral Daily, Pharmacy: [facility] [Not filled] 2. A djustment disorder He is having some adjustment I think with the stresses of the past year. I will put him into see [facility] but he does plan on going to [place] next month so not sure he will be able to have fruition. I n the meantime he can go to [employer] [facility] want to speak to some of the counseling there as it may be beneficial f or him b efore he can actually be seen. Ordered: Referral Request 2.0 This is a(n) A ctive Duty [employer] [ H and S peter]?who is referred for [facility]. Patient i s not o n a Mental Health LIMDU. Referring provider is Peter] . P atient s current contact info is [phone] ]. Provisional mental health diagnosis is [adjustment disorder]. T he patient d oes not?have a mental health provider: N o mental health provider . 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 ( ) If network care is requested and a specific network provider is identified, please authorize care with [ f irst available ]. Note to Network Providers: I n accordance with [facility] Policy, please send completed mental health notes to the clear and legible report (CLR) fax line at [phone] within 7 business days of patient encounter. Extracted from:Title: Office Clinic Note Author: MARCIA MIN, [facility] Date: 12/15/21 1. V asectomy requested 36 y/o male here requesting a vasectomy, referral to urology placed today, f/u with PCM as needed. Ordered: Referral Request 2.0 2. E levated blood pressure reading without diagnosis of hypertension Elevated blood pressure reading today, will continue to monitor, recommend routine f/u with PCM. Extracted from:Title: Office Clinic Note Author: SHARYN PRIETO Date: 11/18/21 1. L clifton - Recommend continued ice/heat alternating with Motrin as ordered. - Physical therapy consult placed for additional stretching and strengthening techniques - XR of T/L spine - Follow up in two weeks to one month if not improved or sooner if any red flag symptoms (which there are none at this time), including LE weakness, loss of bowel or bladder control, saddle numbness/tingling - Recommend gentle stretching as tolerated and to avoid bed rest. - Avoid heavy lifting until symptoms have improved - Patient agreed with this plan Extracted from:Title: Back Pain Author: XIOMARA BELTRAN MD Date: 03/03/21 1. B ack pain [age] yo ADM w/ 5+ year hx of right sided upperback pain with associated tightness worsened with overhead activity., HX and PE concerning for likely muscle spams/hypertonic pathology. Advised patient on the use of heat, provided HEP, and referred to [facility] for guided stretching and rehab. QHS PRN muscle relaxers provided for short term symptom relief. Return precautions given. F/U as needed. Ordered: cyclobenzaprine, 1 tab(s), Oral, every day at bedtime, # 30 tab(s), 0 total refill(s), Acute, 1 tab(s) Oral every day at bedtime, Pharmacy: [facility] [Not filled] Extracted from:Title: R knee pain Author: XIOMARA BELTRAN MD Date: 02/25/21 1. K nee pain [age] yo ADM w/ several month hx of insidious onset right knee pain with acute exacerbation. PE significant for stable ligaments w/ only TTP with deep palpation in the popliteal fossa. Given hx of insidious onset and Hx suspect symptoms likely 2/2 degenerative changes/osteoarthritis. Advised HEP, NSAIDs for pain relief, and referred to [facility]. Will obtain plain films to assess for arthritis. LLD provided. F/U when films result. Ordered: naproxen, 1 tab(s), Oral, BID, # 60 tab(s), 0 total refill(s), Acute, 03/27/2021, 1 tab(s) Oral BID, Pharmacy: [facility] [Last filled 02/25/21] XR Knee 3 Views Right 07/28/2024 [id number] THELMA Hernandez-Medical Functional Status Combined list of recent functional and cognitive assessments recorded at [facility] [employer] and [facility] (VA).VA Functional [place] Measurement (FIM) Scale: 1 = Total Assistance (Subject = 0% +), 2 = Maximal Assistance (Subject = 25% +), 3 = Moderate Assistance (Subject = 50% +), 4 = Minimal Assistance (Subject = 75% +), 5 = Supervision, 6 = Modified [place] (Device), 7 = Complete [place] (Timely, Safely). Assessment Date/Time Source Assessment Type Assessment Skill Assessment Score Assessment Details No data available for this section
[2024-07-28 08:55] VITALS: BP 133/94; PULSE 91; RESP 18; TEMP 36.4; O2SAT 98
[2024-07-28 09:10] LABS: EDSTREPNEGPOS1 Negative (Negative)
== END 2024-07-28 09:12 | disposition home or self-care (01) ==
PROVIDERS: Emergency Provider Nurse Practitioner Family; PCP Family Medicine
DX: R09.82 Postnasal drip (principal); J02.0 Streptococcal pharyngitis; Z98.52 Vasectomy status
CPT/HCPCS: 87081; 87880; 99213; G0463

== ENCOUNTER 2024-08-14 14:17 | Emergency (ER) | payer OTHER, SELFPAY ==
[2024-08-14 14:20] VITALS: BP 134/91; PULSE 87; RESP 18; TEMP 36.7; O2SAT 96
--- NOTE | 2024-08-14 14:32 | ED.URI ---
HPI - URI/Sore Throat General Chief Complaint: Upper Respiratory Infection Stated Complaint: Sore throat Time Seen by Provider: 08/14/24 14:34 Source: patient, RN notes reviewed and old records reviewed Mode of arrival: ambulatory Limitations: no limitations History of Present Illness HPI Narrative: 39-year-old male presents to the [facility] with complaints of a sore throat that started Tuesday. Recently diagnosed with strep throat. Was on amoxicillin and prednisone. States that he did take his full 10 days of amoxicillin. Related Data Allergies Allergy/AdvReac Type Severity Reaction Status Date / Time No Known Allergies Allergy Verified 07/28/24 08:55 Review of Systems Review of Systems: All systems reviewed & are unremarkable except as noted in HPI and below Constitutional: Constitutional: Reports no additional constitutional complaints ENT: Reports as per HPI and Reports sore throat Cardiovascular: Cardiovascular: Reports no additional cardiovascular complaints, Denies chest pain and Denies dyspnea Respiratory: Respiratory: Reports no additional respiratory complaints, Denies chest congestion, Denies cough and Denies dyspnea Musculoskeletal: Musculoskeletal: Reports no additional musculoskeletal complaints Integumentary/Breasts: Skin/Breast: Reports system reviewed and no additional complaints, except as docu PMFSH Past Medical History Medical History Lateral epicondylitis of elbow Migraines Elevated BP without diagnosis of hypertension Hypersomnia Snoring Depression PTSD (post-traumatic stress disorder) Frequent headaches Anxiety Surgical History Surgical History History of vasectomy 2022 Family History Family History Father COPD (chronic obstructive pulmonary disease) Mother Diabetes mellitus Hypertension Grandparent Diabetes mellitus Hypertension Carcinoma of colon Social History Social History Smoking status: Never smoker Alcohol intake: current Alcohol use details: Beer- Once a week 3-6 drinks Substance use: never Comments At the time of my signature, I reviewed and agree with the nursing past medical, surgical, social, and family history. There is no relevant family history pertinent to the patient complaint. Exam Const: General: cooperative, healthy appearing, comfortable, no acute distress, well developed, alert and well nourished Nutritional Appearance: well nourished Orientation/consciousness: patient oriented x3 Limitations: no limitations HENMT: Head: normal to inspection Ears: hearing grossly normal bilaterally, external ears normal, TM's normal bilaterally, EAC's normal, mastoids normal and no periauricular adenopathy Mouth: Yes Normal oral and palatal mucosa present, Yes lip normal, Yes tongue normal and Yes moist mucous membranes Throat: posterior oropharynx normal, tonsils normal, uvula midline and no uvular edema Eyes: General: appearance normal, both eyes and all related structures Alignment and Position: alignment normal Neck: Neck: normal visual inspection, full ROM, no lymphadenopathy and no meningeal signs Chest: Chest palpation & inspection: normal inspection of the chest Resp: Effort & Inspection: normal respiratory effort and able to speak in complete sentences Auscultation: clear to auscultation bilaterally, no crackles, no rales, no rhonchi and no wheezes Cardio: Rate: regular rate Skin: General skin exam: normal color and no rashes or lesions noted Neuro: General: patient oriented x3, gait normal, moves all extremities and no meningeal signs Cognition (Neuro): normal cognition Speech: normal speech Gait exam (Neuro): Normal gait present Extrem: General: normal to inspection, full ROM, capillary refill normal and normal gait Psych: Appearance: grossly normal and well kempt Mental Status: mental status grossly normal Speech and movement: Normal speech and movement present and Clear speech present Affect: normal affect Attitude: cooperative Course Course Level of Care: Express Care Visit Vital Signs Vital signs: Vital Signs Temperature 98.0 F 08/14/24 14:20 Pulse Rate 87 08/14/24 14:20 Respiratory Rate 18 08/14/24 14:20 Blood Pressure 134/91 H 08/14/24 14:20 Pulse Oximetry 96 08/14/24 14:20 Oxygen Delivery Room Air 08/14/24 14:20 Temperature 98.0 F 08/14/24 14:44 Pulse Rate 87 08/14/24 14:44 Respiratory Rate 18 08/14/24 14:44 Blood Pressure 134/91 H 08/14/24 14:44 Pulse Oximetry 96 08/14/24 14:44 Oxygen Delivery Room Air 08/14/24 14:44 Reviewed MDM - URI/Sore Throat MDM Narrative Medical decision making narrative: patient sitting in exam. Patient is nontoxic, patient is stable. Patient in no acute distress. Patient presents with sore throat. Recently treated for strep. Strep test negative, will culture patient appropriate for outpatient treatment with close follow-up Discharge instructions reviewed with patient, as well as provided in writing per nursing staff. The instructions also include specific and strict return/GO TO THE ER as well as f/u information. All questions have been answered, and the patient deny any further questions with discharge and discharge plan. Some parts of this dictation were generated by voice recognition software and may contain typographical and/or grammatical inaccuracies. Differential Diagnosis Differential diagnosis: Likely upper respiratory infection, otitis media, sinusitis, viral infection, bronchitis and pharyngitis Lab Data Labs: Lab Results 08/14/24 Range/Units 14:42 POC Grp A Strep Screen Negative (Negative) Reviewed Critical Care Time Critical Care Time Critical Care Time: No Discharge Plan Discharge Clinical Impression: Pharyngitis Qualifiers: Pharyngitis/tonsillitis etiology: unspecified etiology Qualified Code(s): J02.9 - Acute pharyngitis, unspecified Patient Disposition: Home Condition: Stable Instructions: Antibiotic Form, Pharyngitis (ED) Additional Instructions: Your rapid strep swab was negative today at [facility]. A throat culture will be sent to the laboratory for further testing. If the test is positive, you will receive a phone call within 48 hours and an appropriate antibiotic will be initiated at that time. It is very important to treat your symptoms. Drink plenty of water, Gatorade, Pedialyte, ice pops or Jell-O. -Alternate Tylenol and Motrin per package directions for fever or pain. You can alternate every 4 hours -Antihistamine medication such as Zyrtec/Claritin/Grazyna during the day can help improve symptoms. -doing daily nasal irrigations can help relieve pressure your sinuses. Things like a Neti pot -Use Flonase twice a day for 5 days then daily to help reduce the inflammation and dry up your sinuses. -You can also use Mucinex. Be sure to drink plenty of water with this medication at least 8 ounces with every dose and it is important to drink 8 to 10 glasses of water per day. Water is a natural decongestant -Eat and drink things that are easy to swallow, like tea or soup, or popsicles. -Oral rinses such as: Salt water gargles and/or may use topical anesthetic (eg. Chloraseptic spray) or lozenges to relieve dryness or throat pain). -Frequent hand washing or hand supervisor assembly room is one of the best ways to prevent spread of infection. -Using a vaporizer or humidifier at night will also help thin secretions and help with coughing up phlegm. -Follow up with primary care provider in 7-10 days if condition is not improving - For new or worsening symptoms go directly to the nearest ER Patient Language: Cameroonian Prescriptions: No Action prednisone 20 mg tablet 40 mg PO DAILY 5 Days Qty: 10 0RF amoxicillin 500 mg capsule 500 mg PO Q12H 10 Days Qty: 20 0RF Follow-up/Referrals: Cora Malagon NP [Primary Care Provider] - 2 Weeks ( [facility] follow-up) Stand Alone Forms: Work/School Release IP Time of Disposition: 14:49
--- OUTSIDE RECORDS SUMMARY | 2024-08-14 14:34 | XMS_ITS | Continuity of Care Document ---
Author Name [facility] Organization [facility] Care Team Providers Care Tamale Machine Feeder Name Role Phone [facility] Unavailable Unavailable Problems Combined list of problems from Department of Defense and Veterans Affairs facilities. It does not include entries that were removed or entered in error. Problem Status Onset Date Problem Type Date of Resolution Comments Source visit for: services physical Active Condition DoD visit for: occupational health / fitness exam Active Condition DoD Migraine variants Active Condition 0232 C-[facility] Morbid obesity Active Condition Unknown Organization PTSD - Post-traumatic stress disorder Active Condition 0232C-[facility] Allergies, Adverse Reactions, Alerts Combined list of allergies from Department of Defense and Veterans Affairs facilities. It does not include entries that were removed or entered in error. Substance Category Reaction Severity Reaction type Status Date Reported Comments Source No Known Allergies Drug allergy (disorder) active 12/06/2007 [facility] Immunizations Combined list of available immunizations from the Department of Defense and Veterans Affairs facilities. Immunization Series Date Given Administered By Site Reaction Lot Number CVX Code Drug Sign Language Instructor Status Comments Source influenza virus vaccine, inactivated 2021 JUVENCIO Moreiraul macario, right (delt oid) [id number] [employer] complet ed influenza virus vaccine, inactivat ed 02/26/22 Given 0232C-N [facility] l tetanus, diphtheria, acellular pertu is 2021 LOUIAMS Shoul macario, left (delt oid) [id number] sanofi pasteur complet ed tetanus, diphtheri a, acellular pertussis 08/03/21 Given 0029C-N [facility] COVID Vaccine Pfizer 2021 MISBAHLLIAMS Shoul macario, right (delt oid) [id number] PFIZER complet ed COVID Vaccine Pfizer 08/03/21 Given 0029C-N [facility] influenza virus vaccine, inactivated 2020 CODYDDUPONT Shoul macario, left (delt oid) [id number] 150 [employer], A [employer] complet ed influenza virus vaccine, inactivat ed 02/23/21 [facility] l influenza, injectable, quadrivalent 2020 RUTWILLEMMS [id number] 158 complet ed Result Comment: Route: Unknown Manufactu rer: OT (SEQ) 0029CN [facility] COVID Vaccine Pfizer 2020 LAKESHIA GIBBS Shoul macario, right (delt oid) [id number] PFIZER complet ed COVID Vaccine Pfizer 11/13/20 Given 0029N [facility] COVID Vaccine Pfizer 2020 BROOKLYMAYKELLUIGIG E Shoul macario, left (delt oid) [id number] PFIZER complet ed COVID Vaccine Pfizer 10/21/20 Given 0029CN [facility] influenza, injectable, quadrivalent- pf 2019 DERREK Transcr ibed 150 complet ed Result Comment: Route: Unknown Manufactu rer: OT (TRN) 9N [facility] influenza, injectable, quadrivalent- pf 2018 [id number] 150 Seqirus complet ed influenza , injectabl e, quadrival ent-pf 03/06/19 Given Ambulat ory Pharmac y influenza, injectable, quadrivalent- pf 2018 [id number] 988 150 [employer] complet ed influenza , injectabl e, quadrival ent-pf 03/06/19 Given Ambulat ory Pharmac y Influenza, injectable, quadrivalent, preservative free 0 2018 [id number] 988 150 Seqirus (SEQ) complet ed Influenza , injectabl e, quadrival ent, preservat maylin free DoD [place] Encephalitis IM 2018 [id number] 5E 134 Valneva complet ed [place] Encephali tis IM 06/09/18 Given Ambulat ory Pharmac y typhoid vaccine, inactivated 2018 [id number] 101 sanofi pasteur complet ed typhoid vaccine, inactivat ed 06/09/18 Given Ambulat ory Pharmac y anthrax vaccine 2018 [id number] 24 [employer] complet ed anthrax vaccine 06/09/18 Given Ambulat ory Pharmac y typhoid vaccine, inactivated 2018 [id number] 101 sanofi pasteur complet ed typhoid vaccine, inactivat ed 06/09/18 Given Ambulat ory Pharmac y anthrax vaccine 2018 [id number] 24 [employer] complet ed anthrax vaccine 06/09/18 Given Ambulat ory Pharmac y [place] Encephalitis IM 2018 [id number] 5E 134 Valneva complet ed [place] Encephali tis IM 06/09/18 Given Ambulat ory Pharmac y anthrax vaccine 7 2018 [id number] 24 [employer] [place] (MIP) complet ed anthrax vaccine DoD typhoid vaccine, parenteral, other than acetone-kille d, dried 1 2018 [id number] 41 Sanofi Pasteur (PMC) complet ed typhoid vaccine, parentera l, other than acetone-k illed, dried DoD [place] Encephalitis vaccine for intramuscular administratio n 3 2018 [id number] 5E 134 Valneva (LINUS) complet ed [place] Encephali tis vaccine for intramusc ular administr ation DoD varicella virus vaccine 0 2017 21 () Not Given varicella virus vaccine DoD influenza, injectable, quadrivalent- pf 2017 [id number] 1A 150 Seqirus complet ed influenza , injectabl e, quadrival ent-pf 01/23/18 Given Ambulat ory Pharmac y influenza, injectable, quadrivalent- pf 2017 [id number] 1A 150 Seqirus complet ed influenza , injectabl e, quadrival ent-pf 01/23/18 Given Ambulat ory Pharmac y Influenza, injectable, quadrivalent, preservative free 0 2017 [id number] 1A 150 Seqirus (SEQ) complet ed Influenza , injectabl e, quadrival ent, preservat maylin free DoD [place] Encephalitis IM 2016 [id number] 5e 134 Valneva complet ed [place] Encephali tis IM 02/07/17 Given Ambulat ory Pharmac y [place] Encephalitis IM 2016 [id number] 5E 134 Valneva complet ed [place] Encephali tis IM 02/07/17 Given Ambulat ory Pharmac y [place] Encephalitis vaccine for intramuscular administratio n 2 2016 [id number] 5E 134 [employer] (INT) complet ed [place] Encephali tis vaccine for intramusc ular administr ation DoD [place] Encephalitis IM 2016 [id number] 5c 134 Valneva complet ed [place] Encephali tis IM 01/06/17 Given Ambulat ory Pharmac y [place] Encephalitis IM 2016 [id number] 5C 134 Valneva complet ed [place] Encephali tis IM 01/06/17 Given Ambulat ory Pharmac y [place] Encephalitis vaccine for intramuscular administratio n 1 2016 [id number] 5C 134 [employer] (INT) complet ed [place] Encephali tis vaccine for intramusc ular administr [...] rubella virus vaccine DoD anthrax vaccine 2016 [id number] 24 [employer] complet ed anthrax vaccine 08/20/16 Given Ambulat ory Pharmac y typhoid Vi capsular polysaccharid e vac 2016 [id number] 101 [place] [employer] [place] complet ed typhoid Vi capsular polysacch aride vac 08/20/16 Given Ambulat ory Pharmac y typhoid Vi capsular polysaccharid e vac 2016 [id number] 101 [place] [employer] [place] complet ed typhoid Vi capsular polysacch aride vac 08/20/16 Given Ambulat ory Pharmac y anthrax vaccine 2016 [id number] 24 [employer] complet ed anthrax vaccine 08/20/16 Given Ambulat ory Pharmac y anthrax vaccine 7 2016 [id number] 24 [employer] [place] (MIP) complet ed anthrax vaccine DoD typhoid Vi capsular polysaccharid e vaccine 2 2016 [id number] 101 [employer] ([facility]) complet ed typhoid Vi capsular polysacch aride vaccine DoD influenza, seasonal, injectable-pf 2015 [id number] 140 Seqirus complet ed influenza , seasonal, injectabl e-pf 01/21/16 Given Ambulat ory Pharmac y influenza, seasonal, injectable-pf 2015 [id number] 140 Seq[employer] complet ed influenza , seasonal, injectabl e-pf 01/21/16 Given Ambulat ory Pharmac y Influenza, seasonal, injectable, preservative free 0 2015 [id number] 140 Seqirus (SEQ) comple t ed Influenza , seasonal, injectabl e, preservat maylin free DoD anthrax vaccine 2014 [id number] 24 [employer] complet ed anthrax vaccine 03/17/15 Given Ambulat ory Pharmac y anthrax vaccine 2014 [id number] 24 [employer] complet ed anthrax vaccine 03/17/15 Given Ambulat ory Pharmac y anthrax vaccine 7 2014 [id number] 24 [employer] [place] (MIP) complet ed anthrax vaccine DoD influenza,tri valent, recombinant, inj-pf 2014 [id number] 155 CSL Behring complet ed influenza ,trivalen t, recombina nt, inj-pf 03/12/15 Given Ambulat ory Pharmac y influenza,tri valent, recombinant, inj-pf 2014 [id number] 155 C[employer] complet ed influenza ,trivalen t, recombina nt, inj-pf 03/12/15 Given Ambulat ory Pharmac y Seasonal, trivalent, recombinant, injectable influenza vaccine, preservative free 0 2014 [id number] 155 [facility] [employer] (CS) complet ed Seasonal, trivalent , recombina nt, injectabl e influenza vaccine, preservat maylin free DoD anthrax vaccine 2013 [id number] 24 [employer] complet ed anthrax vaccine 03/18/14 Given Ambulat ory Pharmac y influenza, injectable, quadrivalent 2013 [id number] 158 sanofi pasteur complet ed influenza , injectabl e, quadrival ent 03/18/14 Given Ambulat ory Pharmac y typhoid Vi capsular polysaccharid e vac 2013 [id number] 101 [employer] [employer] [place] complet ed typhoid Vi capsular polysacch aride vac 03/18/14 Given Ambulat ory Pharmac y vaccinia (smallpox) vaccine 2013 [id number] 75 Sanofi Pasteur Incorporated complet ed vaccinia (smallpox ) vaccine 03/18/14 Given Ambulat ory Pharmac y influenza, injectable, quadrivalent 2013 [id number] 158 sanofi pasteur complet ed influenza , injectabl e, quadrival ent 03/18/14 Given Ambulat ory Pharmac y vaccinia (smallpox) vaccine 2013 [id number] 75 Sanofi Pasteur Incorporated complet ed vaccinia (smallpox ) vaccine 03/18/14 Given Ambulat ory Pharmac y anthrax vaccine 2013 [id number] 24 [employer] complet ed anthrax vaccine 03/18/14 Given Ambulat ory Pharmac y typhoid Vi capsular polysaccharid e vac 2013 [id number] 101 [place] [employer] [place] complet ed typhoid Vi capsular polysacch aride vac 03/18/14 Given Ambulat ory Pharmac y anthrax vaccine 7 2013 [id number] 24 [employer] [place] (MIP) complet ed anthrax vaccine DoD vaccinia (smallpox) vaccine 0 2013 [id number] 75 (A[place]ON) complet ed vaccinia (smallpox ) vaccine DoD typhoid Vi capsular polysaccharid e vaccine 2 2013 [id number] 101 [employer] ([facility]) complet ed typhoid Vi capsular polysacch aride vaccine DoD influenza, injectable, quadrivalent, contains preservative 0 2013 [id number] 158 Sanofi Pasteur ([facility]) complet ed influenza , injectabl e, quadrival [...] adsorbed 1 2013 TOMÁS KAHN [id number] 115 [employer] ([facility]) complet ed tetanus toxoid, reduced diphtheri a [...] e DoD influenza virus vaccine, live 2009 [id number] Medimmune Inc comple t ed influenza virus vaccine, live 12/18/09 Given Ambulat ory Pharmac y influenza virus vaccine, live 2009 [id number] 111 [employer] comple t ed influenza virus vaccine, live 12/18/09 Given Ambulat ory Pharmac y influenza virus vaccine, live, attenuated, for intranasal use 0 2009 [id number] 111 [employer] (MED) complet ed influenza virus vaccine, live, attenuate d, for intranasa l use DoD [place] Encephalitis vaccine, [place] 2009 [id number] 39 Merck & Company Inc complet ed [place] Encephali tis vaccine, [place] 11/03/09 Given Ambulat ory Pharmac y [place] Encephalitis vaccine, [place] 2009 [id number] 39 Merck & Company Inc complet ed [place] Encephali tis vaccine, [place] 11/03/09 Given Ambulat ory Pharmac y [place] Encephalitis Vaccine SC 3 2009 [id number] 39 Merck (MSD) complet ed [place] Encephali [place]is Vaccine [facility] [place] IM 2009 UNK 134 Unknown complet ed [place] Encephali tis IM 09/11/09 Given Ambulat ory Pharmac y meningococcal polysaccharid e (MPSV4) 2009 UNK 32 [employer]ring complet ed meningoco ccal polysacch aride (MPSV4) 09/11/09 Given Ambulat ory Pharmac y [place] Encephalitis IM 2009 UNK 134 Unknown complet ed [place] Encephali tis IM 09/11/09 Given Ambulat ory Pharmac y [place] Encephalitis vaccine, [place] 2009 [id number] 39 Merck & Company Inc complet ed [place] Encephali tis vaccine, [place] 09/11/09 Given Ambulat ory Pharmac y meningococcal polysaccharid e (MPSV4) 2009 UNK 32 CSL Behring complet ed meningoco ccal polysacch aride (MPSV4) 09/11/09 Given Ambulat ory Pharmac y meningococcal polysaccharid e vaccine (MPSV4) 0 2009 UNK 32 [employer] (AVB) complet ed meningoco ccal polysacch aride vaccine (MPSV4) DoD [place] Encephalitis Vaccine SC 2 2009 [id number] 39 Merck (MSD) complet ed [place] Encephali [place]is Vaccine [facility] [place] vaccine for intramuscular administratio n 3 2009 UNK 134 Unknown (UNK) comple t ed [place] Encephali tis vaccine for intramusc ular administr ation DoD [place] Encephalitis IM 2009 [id number] 134 Merck & Company Inc complet ed [place] Encephali tis IM 07/21/09 Given Ambulat ory Pharmac y anthrax vaccine 2009 [id number] 24 [employer] complet ed anthrax vaccine 07/21/09 Given Ambulat ory Pharmac y [place] Encephalitis vaccine, [place] 2009 [id number] 39 Merck & Company Inc complet ed [place] Encephali tis vaccine, [place] 07/21/09 Given Ambulat ory Pharmac y [place] Encephalitis IM 2009 [id number] 134 Merck & Company Inc complet ed [place] Encephali tis IM 07/21/09 Given Ambulat ory Pharmac y anthrax vaccine 2009 [id number] 24 [employer] complet ed anthrax vaccine 07/21/09 Given Ambulat ory Pharmac y anthrax vaccine 7 2009 [id number] 24 [employer] [place] (MIP) complet ed anthrax vaccine DoD [place] Encephalitis Vaccine SC 1 2009 [id number] 39 Merck (MSD) complet ed [place] Encephali tis Vaccine [place] DoD [place] Encephalitis vaccine for intramuscular administratio n 1 2009 [id number] 134 Merck (MSD) complet ed [place] Encephali tis vaccine for intramusc ular administr ation DoD Novel influenza-H1N 1-09, injectable 2008 UNK 127 complet ed Novel influenza -D3Y3-64, injectabl e 03/14/09 Given Ambulat ory Pharmac y influenza virus vaccine, live 2008 UNK 111 Unknown complet ed influenza virus vaccine, live 03/14/09 Given Ambulat ory Pharmac y typhoid Vi capsular polysaccharid e vac 2008 [id number] sanofi pasteur complet ed typhoid Vi capsular polysacch aride vac 03/14/09 Given Ambulat ory Pharmac y Novel influenza-H1N 1-09, injectable 2008 UNK 127 complet ed Novel influenza -V9L1-13, injectabl e 03/14/09 Given Ambulat ory Pharmac y influenza virus vaccine, live 2008 UNK 111 Unknown complet ed influenza virus vaccine, live 03/14/09 Given Ambulat ory Pharmac y typhoid Vi capsular polysaccharid e vac 2008 [id number] 101 sanofi pasteur complet ed typhoid Vi capsular polysacch aride vac 03/14/09 Given Ambulat ory Pharmac y typhoid Vi capsular polysaccharid e vaccine 1 2008 [id number] 101 Sanofi Pasteur (PMC) complet ed typhoid Vi capsular polysacch aride vaccine DoD influenza virus vaccine, live, attenuated, for intranasal use 0 2008 UNK 111 Unknown (UNK) comple t ed influenza virus vaccine, live, attenuate d, for intranasa l use DoD Novel influenza-H1N 1-09, injectable 0 2008 UNK 127 (AG) complet ed Novel influenza -Q6R8-91, injectabl e DoD anthrax vaccine 2008 UNK 24 [employer] complet ed anthrax vaccine 05/28/08 Given Ambulat ory Pharmac y anthrax vaccine 2008 UNK 24 [employer] complet ed anthrax vaccine 05/28/08 Given Ambulat ory Pharmac y anthrax vaccine 7 2008 UNK 24 [employer] [place] (MIP) complet ed anthrax vaccine DoD anthrax vaccine 2008 UNK 24 [employer] complet ed anthrax vaccine 04/24/08 Given Ambulat ory Pharmac y anthrax vaccine 2008 UNK 24 [employer] complet ed anthrax vaccine 04/24/08 Given Ambulat ory Pharmac y anthrax vaccine 7 2008 UNK 24 [employer] [place] (MIP) complet ed anthrax vaccine DoD influenza [...] 6 2007 UNK 24 [employer] [place] (MIP) complet ed anthrax vaccine DoD influenza virus vaccine,split 2006 UNK 15 [employer] comple t ed influenza virus vaccine,s plit 02/19/07 Given Ambulat ory Pharmac y influenza virus vaccine,split 2006 UNK 15 [employer] [facility] comple t ed influenza virus vaccine,s plit 02/19/07 Given Ambulat ory Pharmac y influenza virus vaccine, split virus (incl. purified surface antigen)-reti red CODE 0 2006 UNK 15 [employer] (MED) complet ed influenza virus vaccine, [...] capsular polysacch aride vaccine DoD typhoid vaccine, inactivated 2006 UNK 101 [facility] complet ed typhoid vaccine, inactivat ed 01/11/07 Given Ambulat ory Pharmac y typhoid vaccine, inactivated 2006 UNK 101 [facility] complet ed typhoid vaccine, inactivat ed 01/11/07 Given Ambulat ory Pharmac y typhoid vaccine, parenteral, other than acetone-kille d, dried 2 2006 UNK 41 [facility] complet ed typhoid vaccine, parentera l, other than acetone-k illed, dried DoD anthrax vaccine 2006 UNK 24 Unknown complet ed anthrax vaccine 11/02/06 Given Ambulat ory Pharmac y anthrax vaccine 2006 UNK 24 Unknown complet ed anthrax vaccine 11/02/06 Given Ambulat ory Pharmac y anthrax vaccine 5 2006 UNK 24 Unknown (UNK) comple t ed anthrax vaccine DoD influenza virus vaccine,split 2005 [id number] 15 [employer] [facility] comple t ed influenza virus vaccine,s plit 03/22/06 Given Ambulat ory Pharmac y influenza virus vaccine,split 2005 [id number] 15 Medimmune Inc comple t ed influenza virus vaccine,s plit 03/22/06 Given Ambulat ory Pharmac y influenza virus vaccine, split virus (incl. purified surface antigen)-reti red CODE 0 2005 [id number] 15 MedImmune, Inc. (MED) complet ed influenza virus vaccine, split virus (incl. purified surface antigen)- retired CODE DoD influenza virus vaccine,split 2004 [id number] 15 Unknown complet ed influenza virus vaccine,s plit 03/11/05 Given Ambulat ory Pharmac y influenza virus vaccine,split 2004 [id number] 15 Unknown complet ed influenza virus vaccine,s plit 03/11/05 Given Ambulat ory Pharmac y influenza virus vaccine, split virus (incl. purified surface antigen)-reti red CODE 0 2004 [id number] 15 Other (OTH) complet ed influenza virus vaccine, split virus (incl. purified surface antigen)- retired CODE DoD influenza virus vaccine,split 2003 [id number] 15 Unknown complet ed influenza virus vaccine,s plit 02/03/04 Given Ambulat ory Pharmac y influenza virus vaccine,split 2003 [id number] 15 Unknown complet ed influenza virus vaccine,s plit 02/03/04 Given Ambulat ory Pharmac y influenza virus vaccine, split virus (incl. purified surface antigen)-reti red CODE 0 2003 [id number] 15 Other (OTH) complet ed influenza virus vaccine, split virus (incl. purified surface antigen)- retired CODE DoD vaccinia (smallpox) vaccine 2003 [id number] 75 [employer] complet ed vaccinia (smallpox ) vaccine 11/15/03 Given Ambulat ory Pharmac y vaccinia (smallpox) vaccine 2003 [id number] 75 [place] complet ed vaccinia (smallpox ) vaccine 11/15/03 Given Ambulat ory Pharmac y vaccinia (smallpox) vaccine 1 2003 [id number] 75 [facility] complet ed vaccinia (smallpox ) vaccine DoD anthrax vaccine 2003 UNK 24 Unknown complet ed anthrax vaccine 10/19/03 Given Ambulat ory Pharmac y anthrax vaccine 2003 UNK 24 Unknown complet ed anthrax vaccine 10/19/03 Given Ambulat ory Pharmac y anthrax vaccine 4 2003 UNK 24 Unknown (UNK) comple t ed anthrax vaccine DoD anthrax vaccine 2003 [id number] 24 Unknown complet ed anthrax vaccine 09/06/03 Given Ambulat ory Pharmac y anthrax vaccine 2003 [id number] 24 Unknown complet ed anthrax vaccine 09/06/03 Given Ambulat ory Pharmac y anthrax vaccine 3 2003 [id number] 24 Other (OTH) complet ed anthrax vaccine DoD anthrax vaccine 2003 [id number] 24 Unknown complet ed anthrax vaccine 08/22/03 Given Ambulat ory Pharmac y anthrax vaccine 2003 [id number] 24 Unknown complet ed anthrax vaccine 08/22/03 Given Ambulat ory Pharmac y anthrax vaccine 2 2003 [id number] 24 Other (OTH) complet ed anthrax vaccine DoD varicella virus vaccine 1 2003 21 () Not Given varicella virus vaccine DoD hepatitis A-hepatitis B vaccine 2003 UNKNOWN 104 Unknown complet ed hepatitis A-hepatit is B vaccine 08/08/03 Given Ambulat ory Pharmac y typhoid vaccine, inactivated 2003 UNKNOWN 101 Unknown complet ed typhoid vaccine, inactivat ed 08/08/03 Given Ambulat ory Pharmac y anthrax vaccine 2003 [id number] 24 Unknown complet ed anthrax vaccine 08/08/03 Given Ambulat ory Pharmac y typhoid vaccine, inactivated 2003 UNKNOWN 101 Unknown complet ed typhoid vaccine, inactivat ed 08/08/03 Given Ambulat ory Pharmac y hepatitis A-hepatitis B vaccine 2003 UNKNOWN 104 Unknown complet ed hepatitis A-hepatit is B vaccine 08/08/03 Given Ambulat ory Pharmac y anthrax vaccine 2003 [id number] 24 Unknown complet ed anthrax vaccine 08/08/03 Given Ambulat ory Pharmac y anthrax vaccine 1 2003 [id number] 24 Other (OTH) complet ed anthrax vaccine DoD typhoid vaccine, parenteral, other than acetone-kille d, dried 1 2003 UNKNOWN 41 Unknown (UNK) comple t ed typhoid vaccine, parentera l, other than acetone-k illed, dried DoD hepatitis A and hepatitis B vaccine 3 2003 UNKNOWN 104 Other (OTH) complet ed hepatitis A and hepatitis B vaccine DoD hepatitis A-hepatitis B vaccine 2002 [id number] B6 104 GlaxoSmithKli ne complet ed hepatitis A-hepatit is B vaccine 11/09/02 Given Ambulat ory Pharmac y poliovirus vaccine, inactivated 2002 [id number] B6 10 GlaxoSmithKli ne complet ed polioviru s vaccine, inactivat ed 11/09/02 Given Ambulat ory Pharmac y tetanus-dipht h toxoids (Td) adult/adol 2002 [id number] 09 sanofi pasteur complet ed tetanus-d iphth toxoids (Td) adult/ado l 11/09/02 Given Ambulat ory Pharmac y diphtheria/te tanus toxoids/pertu is 2002 Q8900-5 01 Unknown complet ed diphtheri a/tetanus toxoids/p ertussis 11/09/02 Given Ambulat ory Pharmac y yellow fever vaccine 2002 [id number] 37 Unknown complet ed yellow fever vaccine 11/09/02 Given Ambulat ory Pharmac y measles/mumps /rubella virus vaccine 2002 [id number] 03 Unknown complet ed measles/m umps/rube lla virus vaccine 11/09/02 Given Ambulat ory Pharmac y hepatitis A-hepatitis B vaccine 2002 [id number] B6 104 GlaxoSmithKli ne complet ed hepatitis A-hepatit is B vaccine 11/09/02 Given Ambulat ory Pharmac y yellow fever vaccine 2002 [id number] 37 Unknown complet ed yellow fever vaccine 11/09/02 Given Ambulat ory Pharmac y tetanus-dipht h toxoids (Td) adult/adol 2002 [id number] 09 sanofi pasteur complet ed tetanus-d iphth toxoids (Td) adult/ado l 11/09/02 Given Ambulat ory Pharmac y diphtheria/te tanus toxoids/pertu is 2002 L6606-4 01 Unknown complet ed diphtheri a/tetanus toxoids/p ertussis 11/09/02 Given Ambulat ory Pharmac y measles/mumps /rubella virus vaccine 2002 [id number] 03 Unknown complet ed measles/m umps/rube lla virus vaccine 11/09/02 Given Ambulat ory Pharmac y poliovirus vaccine, inactivated 2002 [id number] B6 10 GlaxoSmithKli ne complet ed polioviru s vaccine, inactivat ed 11/09/02 Given Ambulat ory Pharmac y diphtheria, tetanus toxoids and pertu is vaccine 1 2002 O5429-0 01 Other (OTH) complet ed diphtheri a, tetanus toxoids and pertussis vaccine DoD measles, mumps and rubella virus vaccine 1 2002 [id number] 03 Other (OTH) complet ed measles, mumps and rubella virus vaccine DoD tetanus and diphtheria toxoids, adsorbed, preservative free, for adult use (2 Lf of tetanus toxoid and 2 Lf of diphtheria toxoid) 1 2002 [id number] 09 Sanofi Pasteur ([facility]) complet ed tetanus and diphtheri a toxoids, adsorbed, preservat maylin free, for adult use (2 Lf of tetanus toxoid and 2 Lf of diphtheri a toxoid) DoD poliovirus vaccine, inactivated 2 2002 [id number] B6 10 Smithine (SK) complet ed polioviru s vaccine, inactivat ed DoD yellow fever vaccine 1 2002 [id number] 37 Other (OTH) complet ed yellow fever vaccine DoD hepatitis A and hepatitis B vaccine 2 2002 [id number] B6 104 SmithKline (SKB) complet ed hepatitis A and hepatitis B vaccine DoD hepatitis A-hepatitis B vaccine 2002 [id number] 104 GlaxoSmithKli ne complet ed hepatitis A-hepatit is B vaccine 10/09/02 Given Ambulat ory Pharmac y poliovirus vaccine, inactivated 2002 [id number] 6 10 GlaxoSmithKli ne complet ed polioviru s vaccine, inactivat ed 10/09/02 Given Ambulat ory Pharmac y measles/mumps /rubella virus vaccine 2002 [id number] 03 Unknown complet ed measles/m umps/rube lla virus vaccine 10/09/02 Given Ambulat ory Pharmac y meningococcal polysaccharid e (MPSV4) 2002 [id number] 32 Unknown complet ed meningoco ccal polysacch aride (MPSV4) 10/09/02 Given Ambulat ory Pharmac y hepatitis A-hepatitis B vaccine 2002 [id number] 6 104 GlaxoSmithKli ne complet ed hepatitis A-hepatit is B vaccine 10/09/02 Given Ambulat ory Pharmac y meningococcal polysaccharid e (MPSV4) 2002 [id number] 32 Unknown complet ed meningoco ccal polysacch aride (MPSV4) 10/09/02 Given Ambulat ory Pharmac y poliovirus vaccine, inactivated 2002 [id number] 6 10 GlaxoSmithKli ne complet ed polioviru s vaccine, inactivat ed 10/09/02 Given Ambulat ory Pharmac y measles/mumps /rubella virus vaccine 2002 [id number] 03 Unknown complet ed measles/m umps/rube lla virus vaccine 10/09/02 Given Ambulat ory Pharmac y measles, mumps and rubella virus vaccine 1 2002 [id number] 03 Other (OTH) complet ed measles, mumps and rubella virus vaccine DoD poliovirus vaccine, inactivated 1 2002 [id number] 6 10 SmithKline (SKB) complet ed polioviru s vaccine, inactivat ed DoD meningococcal polysaccharid e vaccine (MPSV4) 1 2002 [id number] 32 Other (OTH) complet ed meningoco ccal polysacch aride vaccine (MPSV4) DoD hepatitis A and hepatitis B vaccine 1 2002 [id number] 6 104 SmithKline (SKB) complet ed hepatitis [...] Absent (06/15/22 10:35 AM) 06/15 N [facility] Reproduct maylin Studies Non-Motile Sperm? Absent (06/15/22 10:35 AM) 06/15 N [facility] Reproduct maylin Studies Semen Volume 1.5 mL 1.5 - 6.8 06/15 N [facility] Immunolog y/Serolog y Hep C Ab Non-Reac tive 1 (05/18/22 9:42 AM) 05/18 N Interpretiv e Data: Reactive results for the Hepatitis C antibody should be confirmed with an HCV RNA PRIMO QUAL (TEST CODE: S600471) to determine if the infection is active or resolved. Use of biotin supplements greater than 10 mg/day has been shown to affect the accuracy of this test. Providers should encourage patients to cease all biotin supplements for a minimum of 72 hours before phlebotomy to avoid interferenc e. [facility] AP Specimens AP Surgical Pathology Patient: Jeancarlos Krishnan Specimen #: [id number] Patholog ist: LCDR [facility] Accessio n: [address] [facility] [place]ME [place] Y [address] [facility] 1, [address] [place] [address] Surgical Patholog y Report Patient: Jeancarlos Krishnan Specimen #: [id number] [facility] ID:: [id number] Encounte r #: [id number] Taken: 3 12:09 /Age: 1 4 (Age: [...] TE x 1. ANA CPT Codes: A; 68157 B; 55353 04/[address] [place] [address] Infectiou s Disease Source of Test.LC Gen Force Test (05/20/21 12:57 PM) 05/[address] [place] [address] [facility] Disease HIV-1/2 AG/AB 4G CDD LC NEGATIVE 05/20 Result Comment: Performed At: 1 [facility] [address] [facility] [address] [place] [address] MIGDALIA ARIANA PHD Ph:[phone] [address] [place] [address] Vital Signs Combined list of inpatient and outpatient Vital Signs from Department of Defense and Veterans Affairs, ranging from 12 months to all on record, depending upon the facility. Vital Sign Value Date Comments Source Temperature Tympanic 36.0 Vicky 04/13/2022 16:09:[address] [place] [address] Systolic Blood Pressure 127 mm[Hg] 04/13/19 23 16:09:[address] [place] [address] Diastolic Blood Pressure 89 mm[Hg] 023 16:09:[address] [place] [address] Peripheral Pulse Rate 80 bpm 04/13/2022 16:09:[address] [place] [address] Mean Arterial Pressure, Calc 102 mm[Hg] 04/13/2022 16:09:[address] [place] [address] Systolic Blood Pressure 126 mm[Hg] 06/09/19 23 16:23:00 [facility] Diastolic Blood Pressure 90 mm[Hg] 023 [facility] Peripheral Pulse Rate 83 bpm 06/08/2022 16:23:00 [facility] Mean Arterial Pressure, Calc 102 mm[Hg] 06/08/2022 16:23:00 [facility] Respiratory Rate 17 br/min 06/08/2022 16:23:00 [facility] Temperature Oral 36.8 Vicky 06/08/2022 [facility] Blood Pressure Manual Automatic 06/08/2022 16:23[facility] BP Site Left arm 06/08/2022 16:23:00 [facility] Systolic Blood Pressure 138 mm[Hg] 03/03/20 21 16:00:00 [facility] Diastolic Blood Pressure 91 mm[Hg] 021 16:00[facility] Mean Arterial Pressure, Calc 107 mm[Hg] 03/03/2021 16:00[facility] BP Site Left arm 03/03/2021 16:00[facility] Temperature Oral 36.8 Vicky 03/03/2021 16:00[facility] Blood Pressure Manual Automatic 03/03/2021 16:00[facility] Peripheral Pulse Rate 96 bpm 03/03/2021 16:00:[facility] Systolic Blood Pressure 129 mm[Hg] 05/18/19 17:24:00 [facility] Diastolic Blood Pressure 88 mm[Hg] 023 17:24:00 [facility] Mean Arterial Pressure, Calc 102 mm[Hg] 05/18/2022 17:24:[facility] Peripheral Pulse Rate 89 bpm 05/18/2022 17:24:00 [facility] Respiratory Rate 16 br/min 05/18/2022 17:24:00 [facility] Blood Pressure Manual Automatic 05/18/2022 17:24[facility] Temperature Oral 37 Vicky 05/18/2022 17:24:[facility] BP Site Right arm 05/18/2022 17:24:[facility] Systolic Blood Pressure 136 mm[Hg] 02/26/20 16:47:00 [facility] Diastolic Blood Pressure 104 mm[Hg] 021 16:47:00 [facility] Mean Arterial Pressure, Calc 115 mm[Hg] 02/25/2021 16:47:00 [facility] Peripheral Pulse Rate 76 bpm 02/25/2021 16:47:[facility] Temperature Oral 36.8 Vicky 02/25/2021 16:47:00 [facility] BP Site Left arm 02/25/2021 16:47:[facility] Blood Pressure Manual Automatic 02/25/2021 16:47:[facility] Blood Pressure Manual Automatic 06/22/2022 14:50:00 [facility] BP Site Right arm 06/22/2022 14:50:00 [facility] Systolic Blood Pressure 122 mm[Hg] 06/23/19 14:50:00 [facility] Diastolic Blood Pressure 85 mm[Hg] 023 14:50:00 [facility] Mean Arterial Pressure, Calc 97 mm[Hg] 06/22/2022 14:50:00 [facility] Peripheral Pulse Rate 92 bpm 06/22/2022 14:50:00 [facility] Respiratory Rate 16 br/min 06/22/2022 14:50:00 [facility] Temperature Oral 37 Vicky 06/22/2022 14:50:[facility] Systolic Blood Pressure 130 mm[Hg] 11/19/19 17:36:00 [facility] Diastolic Blood Pressure 94 mm[Hg] 022 17:36:00 [facility] Blood Pressure Manual Automatic 11/18/2021 17:36:00 [facility] Temperature Oral 36.9 Vicky 11/18/2021 17:36:00 [facility] BP Site Left arm 11/18/2021 17:36:00 [facility] Peripheral Pulse Rate 79 bpm 11/18/2021 17:36[facility] Respiratory Rate 18 br/min 11/18/2021 17:36:[facility] Mean Arterial Pressure, Calc 106 mm[Hg] 11/18/2021 17:36:00 [facility] Respiratory Rate 18 br/min 12/15/2021 20:30:00 [facility] Blood Pressure Manual Automatic 12/15/2021 20:30:00 [facility] BP Site Left arm 12/15/2021 20:30:00 [facility] Temperature Oral 36.9 Vicky 12/15/2021 20:30:00 [facility] Peripheral Pulse Rate 72 bpm 12/15/2021 20:30:00 [facility] Mean Arterial Pressure, Calc 109 mm[Hg] 12/15/2021 20:30:00 [facility] Systolic Blood Pressure 136 mm[Hg] 12/16/19 20:30:00 [facility] Diastolic Blood Pressure 95 mm[Hg] 022 20:30:00 [facility] Encounters Combined list of: 1) Encounters from Department of Veterans Affairs facilities going backup to the last 18 months, not all VA inpatient encounters are included; 2) Encounters from the Department of Defense facilities going backup to 280 months. Location Location Details Encounter Type Encounter Number Reason For Visit Attending Provider ADM Date DC Date Status Disposition Source [facility]) OUTPATIENT [id number] PT1 ALANA TRUJILLO ISO, ROBERT E 10/03 Released w/o Limitations [facility]) [facility]) OUTPATIENT [id number] PT2 ALANA SWANSON CHRISTINE M 10/11 Released w/o Limitations [facility]) [facility]) OUTPATIENT [id number] MANSI WINSTON ISO 01/23 Released w/o Limitations [facility]) [facility]) OUTPATIENT [id number] PT2 KIKI PATRICE ELLSWORTH Vikki 01/23 Released w/o Limitations [facility]) [facility](F unm cancer center [facility]) OUTPATIENT [id number] RECRUIT VEL SPEARS 03/03 Released w/o Limitations [facility] (Futenm a Flight Medicin e) [facility] OUTPATIENT [id number] Notes Entered by: TOMÁS KAHN 06 Nov 2013 1132 ------- ------- ------- ------- -- TOMÁS HEAD 11/06 Released w/o Limitations [facility]( Immuniz ation [facility] 237) [facility](Op erational Medicine [place] [address]) OUTPATIENT [id number] RE-ENLSHANA JONES 11/06 Released w/o Limitations [facility]( Operati onal Medicin e [facility] 237) [facility](Op erational Medicine [place] [address]) OUTPATIENT [id number] BRIT Benavides 11/13 Released w/o Limitations [facility]( Operati onal Medicin e [facility] 237) [facility](Oc cupationa l Health [place] [address]) OUTPATIENT [id number] Notes Entered by: PATRICK KELLY 13 Nov 2013 0939 ------- ------- ------- ------- -- occupat ional risk assessm ent/MVO ZULEMA KELLY 11/13 Released w/o Limitations [facility]( Occupat ional Health Clinic [facility] 237) [facility](Im munizatio n [facility] 237) OUTPATIENT [id number] Notes Entered by: VEL MUSTAFA 13 Nov 2013 0954 ------- ------- ------- ------- -- NS ADM VEL MUSTAFA 11/13 Released w/o Limitations [facility]( Immuniz [facility] 237) [facility]( aring Conservat ion Clinic) OUTPATIENT [id number] Notes Entered by: BALWINDER STUART 13 Nov 2013 1008 ------- ------- ------- ------- -- annual audiogr am ear plugs BALWINDER STUART 11/13 Released w/o Limitations [facility]( [facility] [place] [place] 24 Physical Exams) OUTPATIENT [id number] Notes Entered by: THERESA HARLEY 09 Apr 2014 1329 ------- ------- ------- ------- -- COLD SORE ([facility]-46 3) YNES SWAN 04/09 [place]ased w/o Limitations [place] MAG 24 Physica l Exams) [facility] Hearing Conservat [place] OUTPATIENT [id number] Notes Entered by: VITALIY TOM 13 Nov 2014 1206 ------- ------- ------- ------- -- AD 503 VITALIY TOM 11/13 Released w/o Limitations [facility] Hearing Conserv [place] [facility] OUTPATIENT [id number] Notes Entered by: ALAINA SR 26 Nov 2015 1331 ------- ------- ------- ------- -- 503 ALAINA ORTEZ 11/25 [place]ased w/o Limitations [facility] [facility] OUTPATIENT [id number] Notes Entered by: YOVANI MASSEY 27 Nov 2015 0812 ------- ------- ------- ------- -- 503 JAMES LIBIA MASSEY VIKRAM 11/26 Released w/o Limitations [place] [facility] [place] 24 Physical Exams) OUTPATIENT [id number] Notes Entered by: SEBASTIÁN WILSON 21 Jun 2016 0900 ------- ------- ------- ------- -- MID BACK PAIN X 1 DAY JANET MOURA 06/21 Released with Work/Duty Limitations [place] MAG 24 Physica l Exams) [facility](Yum a FLAS Sick Call) OUTPATIENT [id number] Notes Entered by: YASH MONTES DE OCA 25 Jun 2016 1352 ------- ------- ------- ------- -- WTI / SickANNIE Reese 06/25 Released w/o Limitations [facility](Y reese FLAS Militar y Sick Call) [facility] HC [facility]) OUTPATIENT [id number] Notes Entered by: MARK OZUNA V 25 Jan 2018 0828 ------- ------- ------- ------- -- annual CLARICE HARRISON V 01/25 Released w/o Limitations [facility] ) [facility] Tm 2) TELE CONSULT [id number] Notes Entered by: DUC HANSEN 08 May 2018 1352 ------- ------- ------- ------- -- VEL Mehta 05/08 [facility] Tm 2) [place](O ccupation al Medicine) OUTPATIENT [id number] 8 196,,,, ,DOC WHIT FUENTES 11/20 [place]ased w/o Limitations [place] (Occupa tional Medicin e) [place](O ccupation al Medicine) OUTPATIENT [id number] 3 196,,,, ,VG JOSE HENRIQUEZ 11/22 Released w/o Limitations [place] (Occupa tional Medicin e) [facility](H earing Conservat ion [place]) OUTPATIENT [id number] 503 YOBANI NAVARRO 01/10 Released w/o Limitations [facility] (Hearin g Conserv ation [place] ) [facility] Tm 2) TELE CONSULT [id number] Notes Entered by: DUC HANSEN 28 Jun 2019 1001 ------- ------- ------- ------- -- EPHA JAMAL NYE 06/27 [facility] Tm 2) Procedures Combined list of: 1) Procedures from Department of Veterans Affairs facilities going back up to thelast 18 months, not all VA non-surgical procedures are included; 2) All procedures from the Department of Defense facilities. Procedure Procedure Type Code Date Perfomer Comments [facility] e SPECIAL REPORTS SUCH INSURANCE FORMS, MORE THAN THE INFORMATION CONVEYED IN THE USUAL MEDICAL COMMUNICATIONS OR STANDARD REPORTING FORM 02/19/20 03 [facility] PATIENT EDUCATION, NOT OTHERWISE CLASSIFIED, NON-PHYSICIAN PROVIDER, INDIVIDUAL, PER SESSION 01/12/20 19 [facility] VITAL SIGNS (TEMPERATURE, PULSE, RESPIRATORY RATE, AND BLOOD PRESSURE) DOCUMENTED AND REVIEWED (CAP) (EM) 11/23/19 19 [facility] SPIROMETRY, INCLUDING GRAPHIC RECORD, TOTAL AND TIMED VITAL CAPACITY, EXPIRATORY FLOW RATE MEASUREMENT(S), WITH OR WITHOUT MAXIMAL VOLUNTARY VENTILATION 11/21/19 19 [facility] PURE TONE AUDIOMETRY (THRESHOLD); AIR ONLY 11/27/19 16 [facility] PURE TONE AUDIOMETRY (THRESHOLD); AIR ONLY 11/26/19 16 [facility] PURE TONE AUDIOMETRY (THRESHOLD); AIR ONLY 11/14/19 15 [facility] EAR PROTECTOR ATTENUATION MEASUREMENTS 11/14/19 14 [facility] TETANUS, DIPHTHERIA TOXOIDS AND ACELLULAR PERTUSSIS VACCINE (TDAP), WHEN ADMINISTERED TO INDIVIDUALS 7 YEARS OR OLDER, FOR INTRAMUSCULAR USE 11/07/19 14 [facility] AUDIOMETRIC TESTING OF GROUPS 01/26/20 18 [facility] PURE TONE AUDIOMETRY (THRESHOLD); AIR ONLY 10/23/19 11 [facility] SERVICE(S) PROVIDED BETWEEN 10:00 PM AND 8:00 AM AT 24-HOUR FACILITY, IN ADDITION TO BASIC SERVICE 06/23/19 10 [facility] INJECTION, KETOROLAC TROMETHAMINE, PER 15 MG 04/21/19 10 [facility] PURE TONE AUDIOMETRY (THRESHOLD); AIR ONLY 04/16/19 09 [facility] SPIROMETRY, INCLUDING GRAPHIC RECORD, TOTAL AND TIMED VITAL CAPACITY, EXPIRATORY FLOW RATE MEASUREMENT(S), WITH OR WITHOUT MAXIMAL VOLUNTARY VENTILATION 10/12/19 08 [facility] SPIROMETRY, INCLUDING GRAPHIC RECORD, TOTAL AND TIMED VITAL CAPACITY, EXPIRATORY FLOW RATE MEASUREMENT(S), WITH OR WITHOUT MAXIMAL VOLUNTARY VENTILATION 10/04/19 08 [facility] PURE TONE AUDIOMETRY (THRESHOLD); AIR ONLY 11/24/19 07 [facility] PURE TONE AUDIOMETRY (THRESHOLD); AIR ONLY 02/19/20 06 [facility] PURE TONE AUDIOMETRY (THRESHOLD); AIR ONLY 09/04/19 05 [facility] PURE TONE AUDIOMETRY (THRESHOLD); AIR ONLY 10/11/19 03 [facility] Preventive Medicine Physical Exam Vital Signs Recorded Preventive Medicine Physical Exam Vital Signs Recorded 11/23/19 19 JOSE HENRIQUEZ [facility] Spirometry Spirometry 28182 11/21/19 19 WHIT FUENTES [facility] Audiometry Group Testing Audiometry Group Testing 11735 01/26/20 18 CLARICE HARRISON V [facility] Threshold Audiogram (Pure Tone) Threshold Audiogram (Pure Tone) 86791 11/27/19 16 LIBIA MASSEY Threshold Audiogram (Pure Tone) Threshold Audiogram (Pure Tone) 30807 11/26/19 16 ALAINA ORTEZ [facility] Threshold Audiogram (Pure Tone) Threshold Audiogram (Pure Tone) 19780 11/14/19 15 VITALIY TOM [facility] Ear Protector Attenuation Measurements Ear Protector Attenuation Measurements 40543 11/14/19 14 BALWINDER STUART Threshold Audiogram (Pure Tone) Threshold Audiogram (Pure Tone) 11826 11/14/19 14 BALWINDER STUART Tdap Vaccine Seven Years Of Age And Above Tdap Vaccine Seven Years Of Age And Above 70470 11/07/19 14 TOMÁS KAHN [facility] Immunization Administration One Vaccine Immunization Administration One Vaccine 06182 11/07/19 14 TOMÁS KAHN [facility] Spirometry Spirometry 05955 10/12/19 08 PATRICE ELLSWORTH [facility] Spirometry Spirometry 85224 10/04/19 08 CLARICE CRAWFORD [facility] Threshold Audiogram (Pure Tone) Automated Threshold Audiogram (Pure Tone) Automated 0208T YOBANI NAVARRO [facility] Patient education, not otherwise cla ified, non-physician provider, individual, per se ion YOBANI NAVARRO [facility] No data available for this section Ambulato ry Pharmacy Social History Combined list of available smoking, tobacco, and other social history from Department of Defense and Veterans Affairs facilities. Social History Type Response Date Comment Sourc e Sex Representation Male (finding) 03/24/2020 Un [...] from:Title : Office Clinic Note Author: MARCIA MIN, KENDALL Date: 06/22/22 1. R epeated prescription 37 y/o male here for medication refills prior to chcf from [facility], already completed his chcf physical, medications refilled today, recommended close f/u [...] refill(s), Maintenance, 1 tab(s) Oral BID, Pharmacy: [facility] [Not filled] SUMAtriptan(SUMAtriptan 50 mg oral tablet), See Instructions, Take 1 tablet by mouth at onset of migraine headache. May repeat dose after 2 hours if needed. Max of 100mg within 24 hours, # 18 tab(s), 1 total refill(s), Maintenance, please dispense all refills, Take 1 tablet by mouth at onset of... Extracted from:Title: Alf PE Author: FRAN WATKINS Date: 06/08/22 1. 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 M igraine variants [...] refill(s), Maintenance, 1 tab(s) Oral BID, Pharmacy: [facility] [Not filled] 3. P TSD - [...] refill(s), Maintenance, 1 tab(s) Oral BID, Pharmacy: [facility] [Not filled] Extracted from:Title: Office Clinic Note Author: ANGELICA MICHELE Date: 06/01/22 Patient has completed the requirements for annual Periodic Health Assessment per OFELIA 6120.3 and KELSEY 6025.19. RS database profile was updated to [...] Assessment or Post-Deployment Health Assessment (DD Form 0406), did you have direct and prolonged contact with any individuals of the following groups: refugees or displaced persons; patients hospitalized with tuberculosis, prisoners, or homeless chcf population? NO 3a. Have you been to any countries where you have traveled or deployed to since your last Tuberculosis Exposure Risk Assessment? NO If any of the following countries are listed, answer question 3c: [place], [place], [place], [place], [place], [place], [place], [place], [place], [place], [place], [place], [place], [place], [place], [place], [place], [place], [place], [place], [place]. 3b. 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 THELMA Pengamar Extracted from:Title: Office Clinic Note Author: THONY [...] refill(s), Maintenance, 1 tab(s) Oral Daily, Pharmacy: [facility] [Not filled] 2. A djustment disorder He is having some adjustment I think with the stresses of the past year. I will put him into see [facility] but he does plan on going to [place] next month so not sure he will be able to have fruition. I n the meantime he can go to [facility] want to speak to some of the counseling there as it may be beneficial f or him b efore he can actually be seen. Ordered: Referral Request 2.0 This is a(n) A ctive Duty Visto E-7 [ H and S peter]?who is referred for [facility]. Patient i s not o n a Mental Health LIMLINNEA. Referring provider is Peter] . Messi el current contact info is [phone] ]. Provisional mental health diagnosis is [adjustment disorder]. T he patient d oes not?have a mental health provider: N o mental health provider . 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 ( ) If network care is requested and a specific network provider is identified, please authorize care with [ f irst available ]. Note to Network Providers: I n accordance with [facility] Policy, please send completed mental health notes to the clear and legible report (CLR) fax line at [phone] within 7 business days of patient encounter. Extracted from:Title: Office Clinic Note Author: MARCIA MIN IDC Date: 12/15/21 1. V asectomy requested 36 y/o male here requesting a vasectomy, referral to urology placed today, f/u with PCM as needed. Ordered: Referral Request 2.0 2. E levated blood pressure reading without diagnosis of hypertension Elevated blood pressure reading today, will continue to monitor, recommend routine f/u with PCM. Extracted from:Title: Office Clinic Note Author: SHARYN PRIETO Date: 11/18/21 1. L umbago - Recommend continued ice/heat alternating with Motrin [...] tab(s) Oral every day at bedtime, Pharmacy: [facility] [Not filled] Extracted from:Title: R knee [...] Acute, 03/27/2021, 1 tab(s) Oral BID, Pharmacy: [facility] [Last filled 02/25/21] XR Knee 3 Views Right 08/14/2024 [facility] THELMA Hernandez-Medical Functional Status Combined list of recent functional and cognitive assessments recorded at [employer] [facility] Functional [place] Measurement (FIM) Scale: 1 = Total Assistance (Subject = 0% +), 2 = Maximal Assistance (Subject = 25% +), 3 = Moderate Assistance (Subject = 50% +), 4 = Minimal Assistance (Subject = 75% +), 5 = Supervision, 6 = Modified [place] (Device), 7 = Complete [place] (Timely, Safely). Assessment Date/Time Source Assessment Type Assessment Skill Assessment Score Assessment Details No data available for this section
[2024-08-14 14:44] VITALS: BP 134/91; PULSE 87; RESP 18; TEMP 36.7; O2SAT 96
[2024-08-14 14:45] LABS: EDSTREPNEGPOS1 Negative (Negative)
== END 2024-08-14 14:56 | disposition home or self-care (01) ==
PROVIDERS: Emergency Provider Nurse Practitioner; PCP Nurse Practitioner Family
DX: J02.9 Acute pharyngitis, unspecified (principal); Z98.52 Vasectomy status
CPT/HCPCS: 87081; 87880; 99213; G0463

== ENCOUNTER 2024-11-19 07:55 | Outpatient (CLI) | payer OTHER, SELFPAY ==
--- NOTE | ~2024-11-19 | MMUS_ITS ---
EXAMINATION: MM diagnostic nisha LT w brooke, US breast LT limited HISTORY: Left breast lump TECHNIQUE: 3-D tomosynthesis images of the breasts were performed and synthetic 2-D images were gener ated. CAD analysis was submitted and interpreted. High resolution limited left breast ultrasound was performed. COMPARISON: None BREAST PARENCHYMAL COMPOSITION:Not Dense. The breasts are almost entirely fatty FINDINGS: MAMMOGRAPHIC FINDINGS: Mammographic examination is unremarkable. No suspicious mass lesion or distortion are identified. No suspicious microcalcifications seen. ULTRASOUND: At the area of concern in the left breast at the 8:00 region, 4 cm from the nipple, there is a 2.7 x 1.2 x 2.3 cm ovoid circumscribed mass. Given lack of visualization on mammography, this is most rosy tible with a lipoma. IMPRESSION: 2.7 x 1.2 x 2.3 cm mass in the left breast sonographically is most compatible with a lipoma. Please s ee details above. BI-RADS Category 2: Benign finding(s). Reviewed, dictated and finalized at location . IMPRESSION: 2.7 x 1.2 x 2.3 cm mass in the left breast sonographically is most compatible w ith a lipoma. Please see details above. BI-RADS Category 2: Benign finding(s).
== END 2024-11-19 07:56 | disposition home or self-care (01) ==
LOC: MICIMG 07:56
PROVIDERS: PCP Nurse Practitioner Family; Visit Provider Nurse Practitioner Family
DX: N63.22 Unspecified lump in the left breast, upper inner quadrant (principal)
CPT/HCPCS: 76642; 77061; 77065; G0279